=== PATIENT | female | born 1985 ===

== ENCOUNTER 2018-01-27 09:56 | Emergency (ER) | payer MEDICAID, OTHER ==
[2018-01-27 10:02] VITALS: BMI 30.3
[2018-01-27 10:03] VITALS: BP 123/81; PULSE 69; TEMP 98.1
[2018-01-27] MEDS ORDERED: Lidocaine 5% Patch TD STA (11:01)
--- NOTE | 2018-01-27 11:21 | ED PDOC ---
HPI: Back Time Seen by Provider: 01/27/18 10:23 Chief Complaint (Nursing): Back Pain History Per: Patient Additional Complaint(s): Pt. states this morning she woke up with non-radiating lower back pain. States she normally sleeps on her sides interchangeably. Pt. states she took 3 200mg Advils without any relief. Pain is worse when she sits down. Denies trauma, incontinence, hematuria, incontinence, dysuria, abdominal pain, fever. Past Medical History Reviewed: Historical Data, Nursing Documentation, Vital Signs Vital Signs: Last Vital Signs Temp 98.1 F 01/27/18 10:02 Pulse 69 01/27/18 10:02 Resp 16 01/27/18 10:02 BP 123/81 01/27/18 10:02 Pulse Ox 96 01/27/18 10:02 - Medical History PMH: Anxiety Denies: Chronic Kidney Disease - Family History Family History: States: Diabetes, Hypertension - Immunization History Hx Tetanus Toxoid Vaccination: Yes Hx Influenza Vaccination: Yes Hx Pneumococcal Vaccination: Yes - Home Medications Home Medications: Ambulatory Orders Medication Instructions Recorded Cyclobenzaprine [Cyclobenzaprine 10 mg PO Q8 PRN #15 tab 01/27/18 HCl] Lidocaine 5% [Lidoderm] 1 ea TD DAILY PRN #10 patch 01/27/18 Naproxen [Naprosyn] 500 mg PO BID PRN #30 tab 01/27/18 - Allergies Allergies/Adverse Reactions: Allergies Allergy/AdvReac Type Severity Reaction Status Date / Time No Known Allergies Allergy Verified 02/27/16 09:58 Review of Systems ROS Statement: Except As Marked, All Systems Reviewed And Found Negative Musculoskeletal: Positive for: Back Pain Physical Exam - Physical Exam Appears: Positive for: Non-toxic, Uncomfortable (moderate painful distress) Skin: Positive for: Normal Color, Warm. Negative for: Rash Eye Exam: Positive for: Normal appearance Gastrointestinal/Abdominal: Positive for: Normal Exam, Soft. Negative for: Tenderness Back: Positive for: Normal Inspection, Muscle Spasm (minimal paralumbar tenderness with spasm). Negative for: L CVA Tenderness, R CVA Tenderness, Vertebral Tenderness Extremity: Negative for: Calf Tenderness (b/l) Neurologic/Psych: Positive for: Alert, Oriented, Gait (steady, unassisted). Negative for: Aphasia, Facial Droop - Laboratory Results Urine POC: Negative - ECG O2 Sat by Pulse Oximetry: 96 - Radiology X-Ray: Interpreted by Me (LS spine x-ray) X-Ray Interpretation: No Acute Disease - Progress ED Course And Treament: Toradol 30mg IM, valium 10mg PO, lidoderm patch, LS spine x-ray ordered. 1200 On re-evaluation, pt. reports moderate analgesia. Disposition - Clinical Impression Clinical Impression: Low back pain - Patient ED Disposition Is Patient to be Admitted: No - Disposition Referrals: [facility] [Outside] [facility] [Outside] Disposition: Routine/Home Disposition Time: 12:06 Condition: STABLE Additional Instructions: Follow up with [facility] for further evlauation Return to ED immediately if symptoms worsen Prescriptions: Cyclobenzaprine [Cyclobenzaprine HCl] 10 mg PO Q8 PRN #15 tab PRN Reason: Muscle Spasm Lidocaine 5% [Lidoderm] 1 ea TD DAILY PRN #10 patch PRN Reason: pain Naproxen [Naprosyn] 500 mg PO BID PRN #30 tab PRN Reason: Pain Instructions: Low Back Pain (DC) Forms: [facility] ([place]), [facility] ED School/Work Excuse
[2018-01-27 11:22] LABS: SQUAMOUS EPITHIAL 1 /hpf (0-5); URINE BACTERIA RARE (<OCC); URINE BILIRUBIN NEGATIVE (NEGATIVE); URINE BLOOD NEGATIVE (NEGATIVE); URINE CLARITY SLIGHTY-CLOUDY (Clear); URINE COLOR YELLOW (YELLOW); URINE GLUCOSE (UA) NEG (Normal); URINE LEUKOCYTE ESTERASE NEG Leu/uL (Negative); URINE PROTEIN NEGATIVE (NEGATIVE)
--- NOTE | 2018-01-27 12:04 | RAD ---
PROCEDURE: Radiographs of the Lumbar Spine. HISTORY: Pain. No history of recent/ related trauma provided COMPARISON: No prior. FINDINGS: BONES: Scoliosis without secondary degenerative change. . No listhesis. No fracture. DISC SPACES: Unremarkable. OTHER FINDINGS: None. IMPRESSION: No significant or acute findings to account for/ related to the clinical presentation.
[2018-01-27 12:15] VITALS: RESP 18
[2018-01-27 19:46] VITALS: O2SAT 96
== END 2018-01-27 12:00 | disposition home or self-care (01) ==
LOC: H.ER 09:56
DX: M54.5 Low back pain (principal); F41.9 Anxiety disorder, unspecified
CPT/HCPCS: 72100; 81003; 81025; 96372; 99283; J1885

== ENCOUNTER 2018-06-15 18:39 | Inpatient (IN) | payer OTHER ==
[2018-06-15 18:39] VITALS: BMI 30.3
[2018-06-15 19:22] LABS: BASO % 0.3 % (0.0-2.0); EOS # 0.2 K/uL (0.0-0.7); EOS % 1.9 % (0.0-4.0); HEMOGLOBIN 11.5 g/dL (12.0-16.0); LYMPH # 2.1 K/uL (1.0-4.3); LYMPH % 19.2 % (20.0-40.0); MEAN CORPUSCULAR HEMOGLOBIN 30.5 pg (27.0-31.0); MEAN CORPUSCULAR HGB CONC 32.5 g/dL (33.0-37.0); MEAN PLATELET VOLUME 7.1 fl (7.2-11.7); MONO # 0.6 K/uL (0.0-0.8); MONO % 5.6 % (0.0-10.0); RBC 3.76 Mil/uL (3.80-5.20); RED CELL DISTRIBUTION WIDTH 19.4 % (11.5-14.5)
[2018-06-15 19:22] LABS: VENOUS BLOOD GAS BASE EXCESS -7.3 mmol/L (0.0-2.0); VENOUS BLOOD GAS PCO2 39 mmHg (40-60); VENOUS BLOOD GAS PO2 54 mm/Hg (30-55); VENOUS BLOOD PH 7.29 (7.32-7.43)
[2018-06-15] MEDS ORDERED: Sodium Chloride 0.9% 1,000 ML IV STA ×2 (19:23→21:12)
[2018-06-15 19:28] LABS: ACETAMINOPHEN < 10.0 ug/ml (10.0-30.0); SALICYLATE < 1.0 mg/dl
[2018-06-15 19:30] LABS: ALB/GLOB RATIO 1.2 (1.0-2.1); ALT/SGPT 56 U/L (9-52); AST/SGOT 84 U/L (14-36); BLOOD UREA NITROGEN 9 mg/dl (7-17); GFR NON-AFRICAN AMERICAN > 60
[2018-06-15 19:36] LABS: INR 1.1
[2018-06-15 19:39] LABS: PARTIAL THROMBOPLASTIN TIME 32.9 Seconds (25.6-37.1)
--- NOTE | 2018-06-15 20:22 | ED PDOC ---
HPI: Psych/Substance Abuse Time Seen by Provider: 06/15/18 18:47 Chief Complaint (Nursing): Substance Abuse Chief Complaint (Provider): Overdose ED Caveat: Intoxicated History Per: Patient, Family (cousin) Onset/Duration Of Symptoms: Hrs (x 3) Current Symptoms Are (Timing): Still Present Modifying Factor(s): Alcohol, Other (ibuprofen and zanaflex) Additional Complaint(s): 33 year old female with a history of asthma and alcohol abuse presents to the ED for evaluation of a drug overdose. According to her cousin, she received a call from the patient around 5 pm telling her to come over immediately because the patient felt sick. On arrival, the cousin found that the patient took the rest of her bottles of 600 mg Motrin and 4 mg Zanaflex and drank alcohol today intentionally. Currently, she is too lethargic to give further history. The karie ttles were filled on September 24 of this year and originally had 90 pills and 60 pills respectively. PMD: Dr. Alfonso Rodriguez Past Medical History Reviewed: Historical Data, Nursing Documentation, Vital Signs Vital Signs: Last Vital Signs Temp 98.3 F 06/15/18 18:44 Pulse 70 06/15/18 18:44 Resp 14 06/15/18 18:44 BP 135/87 06/15/18 18:44 Pulse Ox 99 06/15/18 18:44 - Medical History PMH: Anxiety Denies: Chronic Kidney Disease - Surgical History Surgical History: No Surg Hx - Family History Family History: States: Diabetes, Hypertension - Immunization History Hx Tetanus Toxoid Vaccination: Yes Hx Influenza Vaccination: Yes Hx Pneumococcal Vaccination: Yes - Home Medications Home Medications: Ambulatory Orders Medication Instructions Recorded Cyclobenzaprine [Cyclobenzaprine 10 mg PO Q8 PRN #15 tab 01/27/18 HCl] Lidocaine 5% [Lidoderm] 1 ea TD DAILY PRN #10 patch 01/27/18 Naproxen [Naprosyn] 500 mg PO BID PRN #30 tab 01/27/18 - Allergies Allergies/Adverse Reactions: Allergies Allergy/AdvReac Type Severity Reaction Status Date / Time No Known Allergies Allergy Verified 06/15/18 18:49 Review of Systems Review Of Systems: ROS cannot be obtained secondary to pt's inabilty to answer questions. Physical Exam - Reviewed Nursing Documentation Reviewed: Yes Vital Signs Reviewed: Yes - Physical Exam Appears: Positive for: No Acute Distress (lethargic but easily arousable; appears intoxicated ) Head Exam: Positive for: ATRAUMATIC, NORMAL INSPECTION, NORMOCEPHALIC Skin: Positive for: Normal Color, Warm, Dry Eye Exam: Positive for: EOMI, Other (sluggish gaze and roving eye movement) ENT: Positive for: Pharynx Is (clear), Other (tacky mucous membranes) Neck: Positive for: Normal, Painless ROM, Supple Cardiovascular/Chest: Positive for: Regular Rate, Rhythm Respiratory: Positive for: CNT, Normal Breath Sounds Neurologic/Psych: Positive for: Other (lethargic; arousable to voice; answers some questions but falls asleep almost immediately; slurred speech). Negative for: Motor/Sensory Deficits - Laboratory Results Result Diagrams: 06/15/18 19:15 06/15/18 19:15 - ECG ECG: Positive for: Interpreted By Me, Viewed By Me ECG Rhythm: Positive for: Normal QRS, Normal ST Segment, Sinus Rhythm (normal) Rate: 64 O2 Sat by Pulse Oximetry: 99 (RA) Pulse Ox Interpretation: Normal - Critical Care Total Time (In Min): 30 Documented Critical Care: Time excludes all time spent performint seperately billable procedures Medical Decision Making Medical Decision Makin:47 Impression: drug overdose and alcohol intoxicated Initial Plan: Discussed with poison center Concerning Motrin overdose need to be conscious of GI symptoms like nausea, vomiting and abdominal pain Concerning Zanaflex overdose- be conscious of bradycardia, hypotension and [employer] depression Continue with typical toxic workup for co-ingestion --VBG -_Acetaminophen --Alcohol --CMp --UDS --Beta-HCG --Salicylate --urien preg --Urine dip --CBC --PTT/INR --Glucose --NS IV --1:1 19:[address] Rodriguez. Patient will be placed under his service for intentional overdose of a sedative. 2200 Pt sleeping deeply but arousable, unchange from previous. Maintaining BP and RR. 2400 Pt continues to maintain BP and HR ~60 (similar to arrival). Lactic acid trending improvement. Scribe Attestation: Documented by Alejandrina Grant acting as a scribe for Mariela Gómez MD Provider Scribe Attestation: All medical record entries made by the Scribe were at my direction and personally dictated by me. I have reviewed the chart and agree that the record accurately reflects my personal performance of the history, physical exam, medic al decision making, and the department course for this patient. I have also personally directed, reviewed, and agree with the discharge instructions and disposition. Disposition - Clinical Impression Clinical Impression: Overdose of sedative or hypnotic, Overdose of nonsteroidal anti-inflammatory drug (NSAID) - Patient ED Disposition Is Patient to be Admitted: Yes - Disposition Disposition Time: 19:59 Condition: GUARDED - Pt Status Changed To: Hospital Disposition Of: Inpatient - Admit Certification Admit to Inpatient:: After my assessment, the patient will require hospitalization for at least two midnights. This is because of the severity of symptoms shown, intensity of services needed, and/or the medical risk in this patient being treated as an outpatient. - POA Present On Arrival: None
[2018-06-15 20:50] LABS: BARBITURATES, UR NEGATIVE (NEGATIVE); BENZODIAZEPINES, UR NEGATIVE (NEGATIVE); OPIATES, UR NEGATIVE (NEGATIVE); PHENCYCLIDINE, UR NEGATIVE (NEGATIVE)
[2018-06-15] MEDS ORDERED: Multivitamin (MVI) 10 ML, Thiamine 100 MG, Folic Acid 1 MG in Dextrose 5%/0.45% NS 1,00... IV ONE (21:18)
[2018-06-15] MEDS: Sodium Chloride 0.9% 1,000 ML IV SCH (22:20)
[2018-06-15 23:35] LABS: VENOUS BLOOD GAS PCO2 40 mmHg (40-60); VENOUS BLOOD GAS PO2 76 mm/Hg (30-55); VENOUS BLOOD PH 7.27 (7.32-7.43)
[2018-06-16 05:54] LABS: BASO # 0.1 K/uL (0.0-0.2); BASO % 1.5 % (0.0-2.0); EOS # 0.2 K/uL (0.0-0.7); EOS % 1.9 % (0.0-4.0); HEMOGLOBIN 10.9 g/dL (12.0-16.0); LYMPH # 1.4 K/uL (1.0-4.3); LYMPH % 17.3 % (20.0-40.0); MEAN CELL VOLUME 94.2 fl (81.0-99.0); MEAN CORPUSCULAR HGB CONC 31.9 g/dL (33.0-37.0); MEAN PLATELET VOLUME 7.2 fl (7.2-11.7); MONO # 0.6 K/uL (0.0-0.8); MONO % 7.7 % (0.0-10.0); NEUT # 5.8 K/uL (1.8-7.0); NEUT % 71.6 % (50.0-75.0); RBC 3.63 Mil/uL (3.80-5.20); WHITE BLOOD COUNT 8.1 K/uL (4.8-10.8)
[2018-06-16 06:20] LABS: ALB/GLOB RATIO 1.1 (1.0-2.1); ALBUMIN 3.4 g/dL (3.5-5.0); ALT/SGPT 45 U/L (9-52); AST/SGOT 48 U/L (14-36); BLOOD UREA NITROGEN 6 mg/dl (7-17); CALCIUM 8.8 mg/dL (8.4-10.2); GFR NON-AFRICAN AMERICAN > 60
[2018-06-16] MEDS: Sodium Chloride 0.9% 1,000 ML IV SCH (06:36)
--- NOTE | 2018-06-16 08:27 | CP.PCM.HP ---
History of Present Illness - History of Present Illness History of Present Illness: plt admitted for tele after suicide attempt with ibuprofen/zanaflex. was somnolent in ER but a/ox 4 at present. all labs noted. lft were elevated and now trending down. no f/c, n/v/d. pt w/ psych at bedside cont on 1:1 pt c/o mid chest pain earlier. trop negative. no complaints at present. brusing noted. ?? sternal rub while unresponsive by EMS. Present on Admission - Present on Admission Any Indicators Present on Admission: No Review of Systems - Cardiovascular Cardiovascular: As Per HPI, Chest Pain Past Patient History - Infectious Disease Hx of Infectious Diseases: None - Past Social History Smoking Status: Light Smoker < 10 Cigarettes Daily - CARDIAC Hx Cardiac Disorders: No Hx Angina: No Hx Atrial Fibrillation: No Hx Cardia Arrhythmia: No Hx Circulatory Problems: No Hx Congestive Heart Failure: No Hx Heart Attack: No Hx Heart Murmur: No Hx Heart Transplant: No Hx Hypercholesterolemia: No Hx Hypertension: No Hx Hypotension: No Hx Internal Defibrillator: No Hx Mitral Valve Prolapse: No Hx Pacemaker: No Hx Peripheral Edema: No Hx Peripheral Vascular Disease: No - PULMONARY Hx Respiratory Disorders: Yes Hx Asthma: No Hx Bronchitis: No Hx Chronic Obstructive Pulmonary Disease (COPD): No Hx Emphysema: No Hx Lung Cancer: No Hx Pneumonia: No Hx Pulmonary Edema: No Hx Pulmonary Embolism: No Hx Respiratory Aspiration: No Hx Respiratory Tract Infection: No Hx Sleep Apnea: Yes (prior to surgery) Hx Tuberculosis: No - NEUROLOGICAL Hx Neurological Disorder: No Hx Alzheimer's Disease: No HX Cerebrovascular Accident: No Hx Dementia: No Hx Dizziness: No Hx Meningitis: No Hx Migraine: No Hx Multiple Sclerosis: No Hx Paralysis: No Hx Parkinson's Disease: No Hx Seizures: No Hx Syncope: No Hx Transient Ischemic Attacks (TIA): No Hx Vertigo: No - HEENT Hx HEENT Problems: No Hx Blind: No Hx Cataracts: No Hx Deafness: No Hx Difficulty Chewing: No Hx Epistaxis: No Hx Glaucoma: No Hx Macular Degeneration: No Hx Sinusitis: No - RENAL Hx Chronic Kidney Disease: No - ENDOCRINE/METABOLIC Hx Endocrine Disorders: No Hx Adrenal Cancer: No Hx Diabetes Insipidus: No Hx Diabetes Mellitus Type 1: No Hx Diabetes Mellitus Type 2: No Hx Hyperthyroidism: No Hx Hypothyroidism: No Hx Systemic Lupus Erythematosus: No - HEMATOLOGICAL/ONCOLOGICAL Hx Blood Disorders: Yes Hx AIDS: No Hx Anemia: Yes (as per pt 4 months ago hemglobin low, was on iron pills) Hx Blood Transfusions: No Hx Blood Transfusion Reaction: No Hx Bruising: No Hx Cancer: No Hx Chemotherapy: No Hx Cirrhosis: No Hx Gum Bleeding: No Hx Hemophilia: No Hx Hepatitis A: No Hx Hepatitis B: No Hx Hepatitis C: No Hx Human Immunodeficiency Virus (HIV): No Hx Leukemia: No Hx Metastesis: No Hx Shingles: No Hx Sickle Cell Disease: No Hx Unexplained Bleeding: No Hx von Willebrand's Disease: No - INTEGUMENTARY Hx Dermatological Problems: No Hx Basil Cell: No Hx Vee: No Hx Cellulitis: No Hx Eczema: No Hx Melanoma: No Hx Psoriasis: No Hx Squamous Cell: No - MUSCULOSKELETAL/RHEUMATOLOGICAL Hx Musculoskeletal Disorders: No Hx Arthritis: No Hx Back Pain: No Hx Degenerative Joint Disease: No Hx Falls: No Hx Fractures: No Hx Gout: No Hx Herniated Disk: No Hx Myasthenia Gravis: No Hx Osteoarthritis: No Hx Osteomyelitis: No Hx Osteoporosis: No Hx Rhabdomyolysis: No Hx Rheumatoid Arthritis: No Hx Spinal Stenosis: No Hx Unsteady Gait: No - GASTROINTESTINAL Hx Gastrointestinal Disorders: No Hx Bowel Surgery: No Hx Clostridium Difficile: No Hx Colitis: No Hx Colostomy: No Hx Constipation: No Hx Crohn's Disease: No Hx Diarrhea: No Hx Diverticulitis: No Hx Esophageal Varices: No Hx Fatty Liver Disease: No Hx Gall Bladder Disease: No Hx Gastritis: No Hx Gastroesophageal Reflux: No Hx Hemorrhoids: No Hx Ileostomy: No Hx Irritable Bowel: No Hx Liver Failure: No Hx Nausea: No Hx Pancreatitis: No HX Swallowing Problems: No Hx Ulcer: No Hx Vomiting: No - GENITOURINARY/GYNECOLOGICAL Hx Genitourinary Disorders: No Hx Bladder Cancer: No Hx Bladder Stone: No Hx Cervical Cancer: No Hx Hematuria: No Hx Incontinence: No Hx Ovarian Cancer: No Hx Postmenopausal Bleeding: No Hx Reproductive Disorders: No Hx Sexually Transmitted Disorders: No Hx Uterine Cancer: No Hx Urinary Tract Infection: No - PSYCHIATRIC Hx Psychophysiologic Disorder: No Hx Anxiety: Yes Hx Bipolar Disorder: No Hx Depression: Yes Hx Emotional Abuse: No Hx Hallucinations: No Hx Panic Symptoms: No Hx Paranoia: No Hx Post Traumatic Stress Disorder: No Hx Psychosis: No Hx Physical Abuse: No Hx Schizophrenia: No Hx Sexual Abuse: No Hx Substance Use: No - SURGICAL HISTORY Hx Surgeries: Yes Hx Abdominal Aortic Aneurysm Repair: No Hx Amputation: No Hx Angiogram: No Hx Angioplasty: No Hx Appendectomy: No Hx Arteriovenous Shunt: No Hx Arthroscopy: No Hx Bile Duct Stent: No Hx Breast Biopsy: No Hx Cataract Extraction: No Hx Cardiac Catheterization: No Hx Carotid Endarterectomy: No Hx Section: No Hx Cholecystectomy: No Hx Coronary Artery Bypass Graft: No Hx Coronary Stent: No Hx Dilation and Curettage: No Hx Eye Surgery: No Hx Femoral-Popliteal Bypass Graft: No Hx Gastric Bypass Surgery: Yes (2006 and cesar mclaughlin 2013) Hx Herniorrhaphy: No Hx Hysterectomy: No Hx Joint Replacement: No Hx Kidney Transplant: No Hx Liver Transplant: No Hx Mastectomy: No Hx Musculoskeletal Surgery: No Hx Open Heart Surgery: No Hx Open Reduction Internal Fixation: No Hx Orthopedic Surgery: No Hx Parathyroidectomy: No Hx Penile Implant: No Hx Pulmonary Surgery: No Hx Splenectomy: No Hx Thyroidectomy: No Hx Tonsillectomy: No Hx Tubal Ligation: No Hx Valve Replacement: No Hx Vascular Surgery: No Hx Vascular Access Device: No Other/Comment: Cesar - ANESTHESIA Hx Anesthesia: Yes Hx Anesthesia Reactions: No Meds Allergies/Adverse Reactions: Allergies Allergy/AdvReac Type Severity Reaction Status Date / Time No Known Allergies Allergy Verified 06/16/18 03:51 Physical Exam - Constitutional Appears: Well, Non-toxic, No Acute Distress - Head Exam Head Exam: ATRAUMATIC, NORMAL INSPECTION, NORMOCEPHALIC - Eye Exam Eye Exam: EOMI, Normal appearance, PERRL Pupil Exam: NORMAL ACCOMODATION, PERRL - ENT Exam ENT Exam: Mucous Membranes Moist, Normal Exam - Neck Exam Neck exam: Positive for: Normal Inspection - Respiratory Exam Respiratory Exam: Clear to Auscultation Bilateral, NORMAL BREATHING PATTERN - Cardiovascular Exam Cardiovascular Exam: REGULAR RHYTHM, RRR, +S1, +S2 - GI/Abdominal Exam GI & Abdominal Exam: Normal Bowel Sounds, Soft. absent: Tenderness - Extremities Exam Extremities exam: Positive for: full ROM, normal capillary refill, normal inspection, pedal pulses present - Back Exam Back exam: FULL ROM, NORMAL INSPECTION - Neurological Exam Neurological exam: Alert, CN II-XII Intact, Normal Gait, Oriented x3, Reflexes Normal - Psychiatric Exam Psychiatric exam: Normal Affect, Normal Mood - Skin Skin Exam: Dry, Intact, Normal Color, Warm Additional comments: bruisng to mid chest wall Results - Vital Signs Recent Vital Signs: Last Vital Signs Temp 97.5 F L 06/16/18 08:00 Pulse 87 06/16/18 08:00 Resp 12 06/16/18 08:00 BP 128/77 06/16/18 08:00 Pulse Ox 99 06/16/18 08:00 - Labs Result Diagrams: 06/16/18 04:40 06/16/18 04:40 Labs: Laboratory Results - last 24 hr 06/15/18 06/15/18 06/15/18 18:47 19:15 19:15 WBC RBC Hgb Hct MCV MCH MCHC RDW Plt Count MPV Neut % (Auto) Lymph % (Auto) [place] % (Auto) Eos % (Auto) Baso % (Auto) Neut # (Auto) Lymph # (Auto) [place] # (Auto) Eos # (Auto) Baso # (Auto) PT INR APTT pO2 VBG pH VBG pCO2 VBG HCO3 VBG Total CO2 VBG O2 Sat (Calc) VBG Base Excess VBG Potassium A-a O2 Difference Glucose Lactate FiO2 Blood Gas Comments Crit Value Called To Crit Value Called By Crit Value Read Back Blood Gas Notified Time Sodium 139 Potassium 4.0 Chloride 107 Carbon Dioxide 20 L Anion Gap 16 BUN 9 Creatinine 0.6 L Est GFR ( Amer) > 60 Est GFR (Non-Af Amer) > 60 POC Glucose (mg/dL) 189 H Random Glucose 183 H Calcium 9.0 Phosphorus Magnesium Total Bilirubin 0.1 L AST 84 H ALT 56 H Alkaline Phosphatase 88 Troponin I Total Protein 7.3 Albumin 4.0 Globulin 3.3 Albumin/Globulin Ratio 1.2 Serum HCG, Qual Venous Blood Potassium Salicylates < 1.0 Urine Opiates Screen Urine Methadone Screen Acetaminophen < 10.0 L Ur Barbiturates Screen Ur Phencyclidine Scrn Ur Amphetamines Screen U Benzodiazepines Scrn U Oth Cocaine Metabols U Cannabinoids Screen Alcohol, Quantitative 180 H 06/15/18 06/15/18 06/15/18 19:15 19:15 19:17 WBC 11.0 H D RBC 3.76 L Hgb 11.5 L Hct 35.4 MCV 94.0 D MCH 30.5 MCHC 32.5 L RDW 19.4 H Plt Count 385 MPV 7.1 L Neut % (Auto) 73.0 Lymph % (Auto) 19.2 L [place] % (Auto) 5.6 Eos % (Auto) 1.9 Baso % (Auto) 0.3 Neut # (Auto) 8.0 H Lymph # (Auto) 2.1 [place] # (Auto) 0.6 Eos # (Auto) 0.2 Baso # (Auto) 0.0 PT 12.0 INR 1.1 APTT 32.9 pO2 54 VBG pH 7.29 L VBG pCO2 39 L VBG HCO3 18.9 VBG Total CO2 20.0 L VBG O2 Sat (Calc) 87.7 H VBG Base Excess -7.3 L VBG Potassium 3.7 A-a O2 Difference Glucose 187 H Lactate 2.7 H FiO2 21.0 Blood Gas Comments Lac=2.7 Crit Value Called To austin Coy Crit Value Called By 22 Crit Value Read Back Y Blood Gas Notified Time 1921 Sodium 136.0 Potassium Chloride 103.0 Carbon Dioxide Anion Gap BUN Creatinine Est GFR ( Amer) Est GFR (Non-Af Amer) POC Glucose (mg/dL) Random Glucose Calcium Phosphorus Magnesium Total Bilirubin AST ALT Alkaline Phosphatase Troponin I Total Protein Albumin Globulin Albumin/Globulin Ratio Serum HCG, Qual Venous Blood Potassium 3.7 Salicylates Urine Opiates Screen Urine Methadone Screen Acetaminophen Ur Barbiturates Screen Ur Phencyclidine Scrn Ur Amphetamines Screen U Benzodiazepines Scrn U Oth Cocaine Metabols U Cannabinoids Screen Alcohol, Quantitative 06/15/18 06/15/18 06/15/18 19:17 20:08 23:30 WBC RBC Hgb Hct MCV MCH MCHC RDW Plt Count MPV Neut % (Auto) Lymph % (Auto) [place] % (Auto) Eos % (Auto) Baso % (Auto) Neut # (Auto) Lymph # (Auto) [place] # (Auto) Eos # (Auto) Baso # (Auto) PT INR APTT pO2 76 H VBG pH 7.27 L VBG pCO2 40 VBG HCO3 18.6 VBG Total CO2 19.6 L VBG O2 Sat (Calc) 96.8 H VBG Base Excess -8.0 L VBG Potassium 3.9 A-a O2 Difference 24.0 Glucose 107 H Lactate 2.3 H FiO2 21.0 Blood Gas Comments Crit Value Called To Crit Value Called By Crit Value Read Back Blood Gas Notified Time Sodium 140.0 Potassium Chloride 111.0 H Carbon Dioxide Anion Gap BUN Creatinine Est GFR ( Amer) Est GFR (Non-Af Amer) POC Glucose (mg/dL) Random Glucose Calcium Phosphorus Magnesium Total Bilirubin AST ALT Alkaline Phosphatase Troponin I Total Protein Albumin Globulin Albumin/Globulin Ratio Serum HCG, Qual Negative Venous Blood Potassium 3.9 Salicylates Urine Opiates Screen Negative Urine Methadone Screen Negative Acetaminophen Ur Barbiturates Screen Negative Ur Phencyclidine Scrn Negative Ur Amphetamines Screen Negative U Benzodiazepines Scrn Negative U Oth Cocaine Metabols Negative U Cannabinoids Screen Negative Alcohol, Quantitative 06/16/18 06/16/18 04:40 04:40 WBC 8.1 RBC 3.63 L Hgb 10.9 L Hct 34.2 MCV 94.2 MCH 30.0 MCHC 31.9 L RDW 19.0 H Plt Count 305 MPV 7.2 Neut % (Auto) 71.6 Lymph % (Auto) 17.3 L [place] % (Auto) 7.7 Eos % (Auto) 1.9 Baso % (Auto) 1.5 Neut # (Auto) 5.8 Lymph # (Auto) 1.4 [place] # (Auto) 0.6 Eos # (Auto) 0.2 Baso # (Auto) 0.1 PT INR APTT pO2 VBG pH VBG pCO2 VBG HCO3 VBG Total CO2 VBG O2 Sat (Calc) VBG Base Excess VBG Potassium A-a O2 Difference Glucose Lactate FiO2 Blood Gas Comments Crit Value Called To Crit Value Called By Crit Value Read Back Blood Gas Notified Time Sodium 143 Potassium 4.1 Chloride 114 H Carbon Dioxide 22 Anion Gap 11 BUN 6 L Creatinine 0.6 L Est GFR ( Amer) > 60 Est GFR (Non-Af Amer) > 60 POC Glucose (mg/dL) Random Glucose 90 Calcium 8.8 Phosphorus 2.9 Magnesium 2.2 Total Bilirubin < 0.1 L AST 48 H D ALT 45 Alkaline Phosphatase 69 Troponin I < 0.0120 Total Protein 6.5 Albumin 3.4 L Globulin 3.1 Albumin/Globulin Ratio 1.1 Serum HCG, Qual Venous Blood Potassium Salicylates Urine Opiates Screen Urine Methadone Screen Acetaminophen Ur Barbiturates Screen Ur Phencyclidine Scrn Ur Amphetamines Screen U Benzodiazepines Scrn U Oth Cocaine Metabols U Cannabinoids Screen Alcohol, Quantitative Assessment & Plan (1) Chest pain Assessment and Plan: ?? r/t rescue measure vs gastritis. trop negative. tele wnl pepcid, maalox, zofran prn nausea. monitor fo rfurther complaitns. will do 2nd trop 1200 Status: Acute (2) DVT prophylaxis Assessment and Plan: scd and ae hose hold lovenox r/t nsaid od ambulation Status: Acute (3) Overdose of nonsteroidal anti-inflammatory drug (NSAID) Assessment and Plan: ivf, supportive care stool guiac Status: Acute (4) Overdose of sedative or hypnotic Assessment and Plan: poison control ivf ekg this am is nsr monitor bw w/ vbg/lactate Status: Acute Decision To Admit - Pt Status Changed To: Hospital Disposition Of: Inpatient - Admit Certification Admit to Inpatient:: After my assessment, the patient will require hospitalization for at least two midnights. This is because of the severity of symptoms shown, intensity of services needed, and/or the medical risk in this patient being treated as an outpatient. - . Bed Request Type: Telemetry Admitting Physician: Dennis Rich
--- NOTE | 2018-06-16 08:28 | RAD ---
Date of service: 06/15/2018 HISTORY: overdose COMPARISON: Chest radiographs 02/27/2016. FINDINGS: LUNGS: No active air space disease. Diminished inspiratory volume noted. PLEURA: No significant pleural effusion identified, no pneumothorax apparent. CARDIOVASCULAR: Normal. OSSEOUS STRUCTURES: No significant abnormalities. VISUALIZED UPPER ABDOMEN: Postop changes again seen left upper quadrant medially. OTHER FINDINGS: None. IMPRESSION: Diminished history volume however no infiltrate is appreciated. No pneumothorax or pleural effusion bilaterally. Postop changes reiterated left upper quadrant medially.
[2018-06-16] MEDS ORDERED: Pneumococcal 23-Valent Vaccine IM ONE (09:00)
[2018-06-16] MEDS ORDERED: Influenza Vaccine (5 YR UP)/PF 60 MCG/0.5 ML SYR IM ONE (09:00)
[2018-06-16 12:19] LABS: VENOUS BLOOD GAS BASE EXCESS -4.4 mmol/L (0.0-2.0); VENOUS BLOOD GAS PCO2 39 mmHg (40-60); VENOUS BLOOD GAS PO2 35 mm/Hg (30-55); VENOUS BLOOD PH 7.34 (7.32-7.43)
[2018-06-16 12:21] VITALS: TEMP 97.7; O2SAT 100
--- NOTE | 2018-06-16 13:01 | CARD ---
APPROVED REPORT Date of service: 06/15/2018 EKG Measurement Heart [id number] <Conclusion> Normal sinus rhythm Normal ECG
--- NOTE | 2018-06-16 13:17 | CARD ---
APPROVED REPORT Date of service: 06/16/2018 EKG Measurement Heart [id number] <Conclusion> Normal sinus rhythm Normal ECG
[2018-06-16 14:05] VITALS: BP 148/74; PULSE 68; RESP 17
--- NOTE | 2018-06-16 16:41 | CP.PCM.DIS ---
Provider - Provider Date of Admission: 06/15/18 19:59 Attending physician: Dennis Rich MD Time Spent in preparation of Discharge (in minutes): 15 Diagnosis - Discharge Diagnosis (1) Chest pain Status: Acute (2) DVT prophylaxis Status: Acute (3) Overdose of nonsteroidal anti-inflammatory drug (NSAID) Status: Acute (4) Overdose of sedative or hypnotic Status: Acute Hospital Course - Lab Results Lab Results: Most Recent Lab Values WBC 8.1 K/uL (4.8-10.8) 06/16/18 04:40 RBC 3.63 Mil/uL (3.80-5.20) L 06/16/18 04:40 Hgb 10.9 g/dL (12.0-16.0) L 06/16/18 04:40 Hct 34.2 % (34.0-47.0) 06/16/18 04:40 MCV 94.2 fl (81.0-99.0) 06/16/18 04:40 MCH 30.0 pg (27.0-31.0) 06/16/18 04:40 MCHC 31.9 g/dL (33.0-37.0) L 06/16/18 04:40 RDW 19.0 % (11.5-14.5) H 06/16/18 04:40 Plt Count 305 K/uL (130-400) 06/16/18 04:40 MPV 7.2 fl (7.2-11.7) 06/16/18 04:40 Neut % (Auto) 71.6 % (50.0-75.0) 06/16/18 04:40 Lymph % (Auto) 17.3 % (20.0-40.0) L 06/16/18 04:40 Merrick % (Auto) 7.7 % (0.0-10.0) 06/16/18 04:40 Eos % (Auto) 1.9 % (0.0-4.0) 06/16/18 04:40 Baso % (Auto) 1.5 % (0.0-2.0) 06/16/18 04:40 Neut # (Auto) 5.8 K/uL (1.8-7.0) 06/16/18 04:40 Lymph # (Auto) 1.4 K/uL (1.0-4.3) 06/16/18 04:40 Merrick # (Auto) 0.6 K/uL (0.0-0.8) 06/16/18 04:40 Eos # (Auto) 0.2 K/uL (0.0-0.7) 06/16/18 04:40 Baso # (Auto) 0.1 K/uL (0.0-0.2) 06/16/18 04:40 PT 12.0 Seconds (9.8-13.1) 06/15/18 19:15 INR 1.1 06/15/18 19:15 APTT 32.9 Seconds (25.6-37.1) 06/15/18 19:15 pO2 35 mm/Hg (30-55) 06/16/18 12:00 VBG pH 7.34 (7.32-7.43) 06/16/18 12:00 VBG pCO2 39 mmHg (40-60) L 06/16/18 12:00 VBG HCO3 21.1 mmol/L 06/16/18 12:00 VBG Total CO2 22.2 mmol/L (22-28) 06/16/18 12:00 VBG O2 Sat (Calc) 73.5 % (40-65) H 06/16/18 12:00 VBG Base Excess -4.4 mmol/L (0.0-2.0) L 06/16/18 12:00 VBG Potassium 4.2 mmol/L (3.6-5.2) 06/16/18 12:00 A-a O2 Difference 24.0 mm/Hg 06/15/18 23:30 Sodium 141.0 mmol/L (132-148) 06/16/18 12:00 Chloride 115.0 mmol/L (98-107) H 06/16/18 12:00 Glucose 83 mg/dL (65-105) 06/16/18 12:00 Lactate 1.6 mmol/L (0.7-2.1) 06/16/18 12:00 FiO2 21.0 % 06/16/18 12:00 Blood Gas Comments Lac=2.7 06/15/18 19:17 Crit Value Called To austin Coy 06/15/18 19:17 Crit Value Called By Florentino 06/15/18 19:17 Crit Value Read Back Y 06/15/18 19:17 Blood Gas Notified Time 192106/15/18 19:17 Sodium 143 mmol/l (132-148) 06/16/18 04:40 Potassium 4.1 MMOL/L (3.6-5.0) 06/16/18 04:40 Chloride 114 mmol/L (98-107) H 06/16/18 04:40 Carbon Dioxide 22 mmol/L (22-30) 06/16/18 04:40 Anion Gap 11 (10-20) 06/16/18 04:40 BUN 6 mg/dl (7-17) L 06/16/18 04:40 Creatinine 0.6 mg/dl (0.7-1.2) L 06/16/18 04:40 Est GFR ( Amer) > 60 06/16/18 04:40 Est GFR (Non-Af Amer) > 60 06/16/18 04:40 POC Glucose (mg/dL) 189 mg/dL (65-110) H 06/15/18 18:47 Random Glucose 90 mg/dL (65-105) 06/16/18 04:40 Calcium 8.8 mg/dL (8.4-10.2) 06/16/18 04:40 Phosphorus 2.9 mg/dl (2.5-4.5) 06/16/18 04:40 Magnesium 2.2 MG/DL (1.6-2.3) 06/16/18 04:40 Total Bilirubin < 0.1 mg/dl (0.2-1.3) L 06/16/18 04:40 AST 48 U/L (14-36) H D 06/16/18 04:40 ALT 45 U/L (9-52) 06/16/18 04:40 Alkaline Phosphatase 69 U/L (38-126) 06/16/18 04:40 Troponin I < 0.0120 ng/mL (0.00-0.120) 06/16/18 12:13 Total Protein 6.5 G/DL (6.3-8.2) 06/16/18 04:40 Albumin 3.4 g/dL (3.5-5.0) L 06/16/18 04:40 Globulin 3.1 gm/dL (2.2-3.9) 06/16/18 04:40 Albumin/Globulin Ratio 1.1 (1.0-2.1) 06/16/18 04:40 Serum HCG, Qual Negative (NEGATIVE) 06/15/18 19:17 Venous Blood Potassium 4.2 mmol/L (3.6-5.2) 06/16/18 12:00 Salicylates < 1.0 mg/dl 06/15/18 19:15 Urine Opiates Screen Negative (NEGATIVE) 06/15/18 20:08 Urine Methadone Screen Negative (NEGATIVE) 06/15/18 20:08 Acetaminophen < 10.0 ug/ml (10.0-30.0) L 06/15/18 19:15 Ur Barbiturates Screen Negative (NEGATIVE) 06/15/18 20:08 Ur Phencyclidine Scrn Negative (NEGATIVE) 06/15/18 20:08 Ur Amphetamines Screen Negative (NEGATIVE) 06/15/18 20:08 U Benzodiazepines Scrn Negative (NEGATIVE) 06/15/18 20:08 U Oth Cocaine Metabols Negative (NEGATIVE) 06/15/18 20:08 U Cannabinoids Screen Negative (NEGATIVE) 06/15/18 20:08 Alcohol, Quantitative 49 mg/dl (0-10) H 06/16/18 10:59 - Hospital Course Hospital Course: poison control cleared bw normalized pt signed into psych care Discharge Exam - Head Exam Head Exam: ATRAUMATIC, NORMAL INSPECTION, NORMOCEPHALIC Discharge Plan - Follow Up Plan Condition: GUARDED Disposition: DISCHARGE TO PSYCH HOSPITAL Instructions: Alcohol Poisoning (DC) Additional Instructions: will follow on 3np. repeat bw in am. rted prn. meds per med rec final dx-nsaid/muscle relaxer OD, SI, depression per rn notes, pt doing well. vs noted. all labs reviewed Referrals: Alfonso Rodriguez, DNP, [employer]LL[employer] B[employer] MACHINE OPERATOR [Family Provider] -
== END 2018-06-16 16:30 | DRG 918 ==
LOC: H.ER 18:39 → H.ERHOLD 19:59 → H.ICU/CCU 06-16 02:26
PROVIDERS: ADMIT Family Medicine; ATTEND Family Medicine
PROC: 3E02340 Introduction of Influenza Vaccine into Muscle, Percutaneous Approach (ICD-10-PCS; principal; 2018-06-16)
PROC: 3E0234Z Introduction of Serum, Toxoid and Vaccine into Muscle, Percutaneous Approach (ICD-10-PCS; 2018-06-16)
DX: T39.391A Poisoning by other nonsteroidal anti-inflammatory drugs [NSAID], accidental (unintentional), initial encounter (principal); R07.9 Chest pain, unspecified; F17.210 Nicotine dependence, cigarettes, uncomplicated; Z98.84 Bariatric surgery status; D64.9 Anemia, unspecified; J45.909 Unspecified asthma, uncomplicated; F10.10 Alcohol abuse, uncomplicated; F32.9 Major depressive disorder, single episode, unspecified; F41.9 Anxiety disorder, unspecified; E11.9 Type 2 diabetes mellitus without complications; F10.129 Alcohol abuse with intoxication, unspecified; G47.30 Sleep apnea, unspecified; Z82.49 Family history of ischemic heart disease and other diseases of the circulatory system; Z23 Encounter for immunization

== ENCOUNTER 2018-06-16 17:44 | Inpatient (IN) | payer OTHER ==
[2018-06-16 18:03] VITALS: BMI 29.0
[2018-06-16] MEDS ORDERED: Alum-Mag Hydrox-Simethicone Susp (30 mL) PO PRN (18:16)
[2018-06-16] MEDS ORDERED: DiphenhydrAMINE 50 mg/ml Inj IM PRN (18:16)
[2018-06-16] MEDS ORDERED: Magnesium Hydroxide Susp 30 ml UD PO PRN (18:16)
[2018-06-16 18:20] VITALS: RESP 18
--- NOTE | 2018-06-16 18:42 | PCM.BM ---
<Jomar Chowdary - Last Filed: 06/16/18 18:39> Treatment Plan Problems - Problems identified on initial assessmt Hopelessness/Helplessness Date Initiated: 06/16/18 Time Initiated: 17:55 Assessment reference: NA Treatment assets and liabiliti Patient Assests: adapts well, cooperative, ADL independent, physically healthy, negotiates basic needs Patient Liabilities: relationship conflicts - Milieu Protocol Maintain good personal hygiene: every shift Encourage regular showers, every shift Remind patient to perform daily oral care, every shift Assist patient to perform ADL's Maintain personal safety: every shift Educate patient to report safety concerns to staff, every shift Monitor environment for contraband/sharps Medication safety: Monitor for expected outcome, potential side effects: every shift, Assess barriers to learning: every shift, Assess readiness for medication education: every shift <Cesar Solorio - Last Filed: 06/18/18 09:11> Treatment Plan Problems - Problems identified on initial assessmt Hopelessness/Helplessness Date Initiated: 06/16/18 Time Initiated: 17:55 Assessment reference: NA Substance Use Date Initiated: 06/17/18 Time Initiated: 11:28 Assessment reference: NA Status: Active - Diagnosis (1) Depression Status: Acute Interventions: psychotherapy, pharmacotherapy 06/18/18 09:11
[2018-06-17 06:33] LABS: T4 6.37 ug/dl (5.5-11.0)
--- NOTE | 2018-06-17 09:36 | CP.PCM.HP ---
History of Present Illness - History of Present Illness History of Present Illness: pt admitted to [facility] for suicide attempt/depression. pt admits that her actions were impulse and is not currently suicidal. bw noted. no f/c, n/v/d. am labs ordered. no abd pain/cp/dyspnea Present on Admission - Present on Admission Any Indicators Present on Admission: No Review of Systems - Psychiatric Psychiatric: As Per HPI, Depression, Suicidal Ideation Past Patient History - Infectious Disease Hx of Infectious Diseases: None - Past Social History Smoking Status: Light Smoker < 10 Cigarettes Daily - CARDIAC Hx Cardiac Disorders: No Hx Angina: No Hx Atrial Fibrillation: No Hx Cardia Arrhythmia: No Hx Circulatory Problems: No Hx Congestive Heart Failure: No Hx Heart Attack: No Hx Heart Murmur: No Hx Heart Transplant: No Hx Hypercholesterolemia: No Hx Hypertension: No Hx Hypotension: No Hx Internal Defibrillator: No Hx Mitral Valve Prolapse: No Hx Pacemaker: No Hx Peripheral Edema: No Hx Peripheral Vascular Disease: No - PULMONARY Hx Respiratory Disorders: Yes Hx Asthma: No Hx Bronchitis: No Hx Chronic Obstructive Pulmonary Disease (COPD): No Hx Emphysema: No Hx Lung Cancer: No Hx Pneumonia: No Hx Pulmonary Edema: No Hx Pulmonary Embolism: No Hx Respiratory Aspiration: No Hx Respiratory Tract Infection: No Hx Sleep Apnea: Yes (prior to surgery) Hx Tuberculosis: No - NEUROLOGICAL Hx Neurological Disorder: No Hx Alzheimer's Disease: No HX Cerebrovascular Accident: No Hx Dementia: No Hx Dizziness: No Hx Meningitis: No Hx Migraine: No Hx Multiple Sclerosis: No Hx Paralysis: No Hx Parkinson's Disease: No Hx Seizures: No Hx Syncope: No Hx Transient Ischemic Attacks (TIA): No Hx Vertigo: No - HEENT Hx HEENT Problems: No Hx Cataracts: No Hx Deafness: No Hx Difficulty Chewing: No Hx Epistaxis: No Hx Glaucoma: No Hx Macular Degeneration: No - RENAL Hx Chronic Kidney Disease: No - ENDOCRINE/METABOLIC Hx Endocrine Disorders: No Hx Adrenal Cancer: No Hx Diabetes Insipidus: No Hx Diabetes Mellitus Type 1: No Hx Diabetes Mellitus Type 2: No Hx Hyperthyroidism: No Hx Hypothyroidism: No Hx Systemic Lupus Erythematosus: No - HEMATOLOGICAL/ONCOLOGICAL Hx Blood Disorders: Yes Hx AIDS: No Hx Anemia: Yes (as per pt 4 months ago hemglobin low, was on iron pills) Hx Blood Transfusions: No Hx Blood Transfusion Reaction: No Hx Bruising: No Hx Cancer: No Hx Chemotherapy: No Hx Cirrhosis: No Hx Gum Bleeding: No Hx Hemophilia: No Hx Hepatitis A: No Hx Hepatitis B: No Hx Hepatitis C: No Hx Human Immunodeficiency Virus (HIV): No Hx Leukemia: No Hx Metastesis: No Hx Shingles: No Hx Sickle Cell Disease: No Hx Unexplained Bleeding: No Hx von Willebrand's Disease: No - INTEGUMENTARY Hx Dermatological Problems: No Hx Basil Cell: No Hx Vee: No Hx Cellulitis: No Hx Eczema: No Hx Melanoma: No Hx Psoriasis: No Hx Squamous Cell: No - MUSCULOSKELETAL/RHEUMATOLOGICAL Hx Musculoskeletal Disorders: No Hx Arthritis: No Hx Back Pain: No Hx Degenerative Joint Disease: No Hx Falls: No Hx Fractures: No Hx Gout: No Hx Herniated Disk: No Hx Myasthenia Gravis: No Hx Osteoarthritis: No Hx Osteomyelitis: No Hx Osteoporosis: No Hx Rhabdomyolysis: No Hx Rheumatoid Arthritis: No Hx Spinal Stenosis: No Hx Unsteady Gait: No - GASTROINTESTINAL Hx Gastrointestinal Disorders: No Hx Bowel Surgery: No Hx Clostridium Difficile: No Hx Colitis: No Hx Colostomy: No Hx Constipation: No Hx Crohn's Disease: No Hx Diarrhea: No Hx Diverticulitis: No Hx Esophageal Varices: No Hx Fatty Liver Disease: No Hx Gall Bladder Disease: No Hx Gastritis: No Hx Gastroesophageal Reflux: No Hx Hemorrhoids: No Hx Ileostomy: No Hx Irritable Bowel: No Hx Liver Failure: No Hx Nausea: No Hx Pancreatitis: No HX Swallowing Problems: No Hx Ulcer: No Hx Vomiting: No - GENITOURINARY/GYNECOLOGICAL Hx Genitourinary Disorders: No Hx Bladder Cancer: No Hx Bladder Stone: No Hx Cervical Cancer: No Hx Hematuria: No Hx Incontinence: No Hx Ovarian Cancer: No Hx Postmenopausal Bleeding: No Hx Reproductive Disorders: No Hx Sexually Transmitted Disorders: No Hx Uterine Cancer: No Hx Urinary Tract Infection: No - PSYCHIATRIC Hx Anxiety: Yes Hx Depression: Yes Hx Emotional Abuse: No Hx Physical Abuse: No Hx Sexual Abuse: No Hx Substance Use: No - SURGICAL HISTORY Hx Surgeries: Yes Hx Abdominal Aortic Aneurysm Repair: No Hx Amputation: No Hx Angiogram: No Hx Angioplasty: No Hx Appendectomy: No Hx Arteriovenous Shunt: No Hx Arthroscopy: No Hx Bile Duct Stent: No Hx Breast Biopsy: No Hx Cataract Extraction: No Hx Cardiac Catheterization: No Hx Carotid Endarterectomy: No Hx Section: No Hx Cholecystectomy: No Hx Coronary Artery Bypass Graft: No Hx Coronary Stent: No Hx Dilation and Curettage: No Hx Eye Surgery: No Hx Femoral-Popliteal Bypass Graft: No Hx Gastric Bypass Surgery: Yes (2006 and cesar mclaughlin 2013) Hx Herniorrhaphy: No Hx Hysterectomy: No Hx Joint Replacement: No Hx Kidney Transplant: No Hx Liver Transplant: No Hx Mastectomy: No Hx Musculoskeletal Surgery: No Hx Open Heart Surgery: No Hx Open Reduction Internal Fixation: No Hx Orthopedic Surgery: No Hx Parathyroidectomy: No Hx Penile Implant: No Hx Pulmonary Surgery: No Hx Splenectomy: No Hx Thyroidectomy: No Hx Tonsillectomy: No Hx Tubal Ligation: No Hx Valve Replacement: No Hx Vascular Surgery: No Hx Vascular Access Device: No Other/Comment: Hanny - ANESTHESIA Hx Anesthesia: Yes Hx Anesthesia Reactions: No Meds Allergies/Adverse Reactions: Allergies Allergy/AdvReac Type Severity Reaction Status Date / Time No Known Allergies Allergy Verified 06/16/18 03:51 Physical Exam - Constitutional Appears: Well, Non-toxic, No Acute Distress - Head Exam Head Exam: ATRAUMATIC, NORMAL INSPECTION, NORMOCEPHALIC - Eye Exam Eye Exam: EOMI, Normal appearance, PERRL Pupil Exam: NORMAL ACCOMODATION, PERRL - ENT Exam ENT Exam: Mucous Membranes Moist, Normal Exam - Neck Exam Neck exam: Positive for: Normal Inspection - Respiratory Exam Respiratory Exam: Clear to Auscultation Bilateral, NORMAL BREATHING PATTERN - Cardiovascular Exam Cardiovascular Exam: REGULAR RHYTHM, RRR, +S1, +S2 - GI/Abdominal Exam GI & Abdominal Exam: Normal Bowel Sounds, Soft. absent: Tenderness - Extremities Exam Extremities exam: Positive for: full ROM, normal capillary refill, normal inspection, pedal pulses present - Back Exam Back exam: FULL ROM, NORMAL INSPECTION - Neurological Exam Neurological exam: Alert, CN II-XII Intact, Normal Gait, Oriented x3, Reflexes Normal - Psychiatric Exam Psychiatric exam: Normal Affect, Normal Mood - Skin Skin Exam: Dry, Intact, Normal Color, Warm Results - Vital Signs Recent Vital Signs: Last Vital Signs Temp 96.9 F L 06/17/18 09:29 Pulse 55 L 06/17/18 09:29 Resp 18 06/17/18 09:29 BP 128/79 06/17/18 09:29 Pulse Ox - Labs Labs: Laboratory Results - last 24 hr 06/17/18 05:20 Thyroxine (T4) 6.37 TSH 3rd Generation 1.01 Assessment & Plan (1) DVT prophylaxis Assessment and Plan: ambulation Status: Acute (2) Overdose of nonsteroidal anti-inflammatory drug (NSAID) Assessment and Plan: psych meds, interventions, therapies stool occult blood pepcid, maalox Status: Acute (3) Overdose of sedative or hypnotic Assessment and Plan: psych meds, interventions, therapies Status: Acute Decision To Admit - Pt Status Changed To: Hospital Disposition Of: Inpatient - Admit Certification Admit to Inpatient:: After my assessment, the patient will require hospitalization for at least two midnights. This is because of the severity of symptoms shown, intensity of services needed, and/or the medical risk in this patient being treated as an outpatient. - . Bed Request Type: Adult Psychiatry Admitting Physician: Dennis Rich
[2018-06-17 10:39] LABS: BASO # 0.1 K/uL (0.0-0.2); BASO % 0.9 % (0.0-2.0); EOS # 0.2 K/uL (0.0-0.7); EOS % 3.4 % (0.0-4.0); LYMPH # 1.1 K/uL (1.0-4.3); LYMPH % 16.2 % (20.0-40.0); MEAN CELL VOLUME 93.7 fl (81.0-99.0); MEAN CORPUSCULAR HEMOGLOBIN 30.8 pg (27.0-31.0); MEAN CORPUSCULAR HGB CONC 32.8 g/dL (33.0-37.0); MEAN PLATELET VOLUME 7.1 fl (7.2-11.7); MONO # 0.7 K/uL (0.0-0.8); MONO % 10.4 % (0.0-10.0); NEUT # 4.6 K/uL (1.8-7.0); NEUT % 69.1 % (50.0-75.0); NRBC % 0.1 % (0.0-0.0); RBC 3.57 Mil/uL (3.80-5.20); WHITE BLOOD COUNT 6.6 K/uL (4.8-10.8)
--- NOTE | 2018-06-17 11:28 | PCM.BM ---
Treatment Plan Problems - Problems identified on initial assessmt Hopelessness/Helplessness Date Initiated: 06/16/18 Time Initiated: 17:55 Assessment reference: NA Substance Use Date Initiated: 06/17/18 Time Initiated: 11:28 Assessment reference: NA Status: Active Treatment assets and liabiliti Patient Assests: adapts well, cooperative, ADL independent, physically healthy, negotiates basic needs Patient Liabilities: relationship conflicts - Milieu Protocol Maintain good personal hygiene: every shift Encourage regular showers, every shift Remind patient to perform daily oral care, every shift Assist patient to perform ADL's Maintain personal safety: every shift Educate patient to report safety concerns to staff, every shift Monitor environment for contraband/sharps Medication safety: Monitor for expected outcome, potential side effects: every shift, Assess barriers to learning: every shift, Assess readiness for medication education: every shift
[2018-06-17 11:38] LABS: ALT/SGPT 39 U/L (9-52); AST/SGOT 32 U/L (14-36); BLOOD UREA NITROGEN 6 mg/dl (7-17); CALCIUM 9.1 mg/dL (8.4-10.2); GFR NON-AFRICAN AMERICAN > 60
[2018-06-17 12:00] LABS: ALBUMIN 3.8 g/dL (3.5-5.0)
[2018-06-17 12:01] LABS: ALB/GLOB RATIO 1.4 (1.0-2.1)
--- NOTE | 2018-06-17 13:51 | PCM.PSYCH ---
Initial Psychiatric Evaluation - Initial Psychiatric Evaluation Type of Admission: Voluntary Legal Status: Capacity Chief Complaint (in patient's own words): I regret having my whole life revolving around one person History of Present Illness and Precipitating Events: pt is 33ys old female with previous diagnosis of depression and anxiety diagnosed last september,and alcohol use disorder for past 11 years pt stated that after 11ys of marriage with multiple conflicts, her informed her that he needs to separate from her, since then has been feeling increasingly depressed, down, and anxious , pt started seeing a psychiatrist and therapist , was placed on zoloft, partially compliant with medication and follow up on day she was brought to hospital she heard her speaking to a new girl friend, felt increasingly overwhelmed, she went home and had suicidal ideation, patient overdosed on motrin , xanax and alcohol, then she called her cousin as she felt sick On arrival, the cousin found that the patient took the rest of her bottles of 600 mg Motrin and 4 mg Zanaflex and drank alcohol with the intention to overdose on evaluation, pt is tearful sad and overwhelmed, reported feeling remorseful,for her children but continues to report depression and anxiety, passive suicidal ideation without plan, denied perceptual disturbances, hx of alcohol use for past 11years , pt attends AA meetings Current Medications: Active Medications Generic Name Dose Route Start Last Admin Trade Name Freq PRN Reason Stop Dose Admin Acetaminophen 650 mg 06/16/18 18:16 Tylenol 325mg Tab PO Q4 PRN Pain, moderate (4-7) Al Hydrox/Mg Hydrox/Simethicone 30 ml 06/16/18 18:16 Maalox Plus 30 Ml PO Q4 PRN Dyspepsia Diphenhydramine HCl 50 mg 06/16/18 18:16 Benadryl IM Q6 PRN Extrapyramidal S/S Unable PO Diphenhydramine HCl 50 mg 06/16/18 18:16 Benadryl PO Q6 PRN Extrapyramidal Symptoms Diphenhydramine HCl 50 mg 06/16/18 19:48 Benadryl PO HS PRN Sleep Famotidine 20 mg 06/17/18 09:15 06/17/18 10:45 Pepcid PO Not Given BID ALLAN Haloperidol 5 mg 06/16/18 18:16 Haldol PO Q4 PRN Agitation Haloperidol Lactate 5 mg 06/16/18 18:16 Haldol IM Q4 PRN Agitation, Unable to Take PO Lorazepam 2 mg 06/16/18 18:16 Ativan IM Q4 PRN Anxiety/Agitation,Unable PO Lorazepam 2 mg 06/16/18 18:16 Ativan PO Q4 PRN Anxiety/Agitation Magnesium Hydroxide 30 ml 06/16/18 18:16 Milk Of Magnesia PO HS PRN Constipation Past Psychiatric History - Past Psychiatric History Nature of Treatment: no hx of previous hospitalizations History of ETOH/Drug Use: alcohol use for past 11 years Pertinent Medical Hx (Current Medical&Sleep Prob, Allergies): Allergies Allergy/AdvReac Type Severity Reaction Status Date / Time No Known Allergies Allergy Verified 06/16/18 03:51 Mental Status Examination - Affect Affect: Constricted, Depressed - Motor Activity Motor Activity: Calm - Reliability in Providing Information Reliability in Providing Information: Fair - Speech Speech: Organized - Mood Mood: Depressed, Anxious - Formal Thought Process Formal Thought Process: No Impairment - Obsessions/Compulsions Obsessions: No Compulsions: No - Cognitive Functions Orientation: Person, Place, Situation Sensorium: Alert Attention/Concentration: Attentive - Risk Risk: Suicidal, Diminished functioning - Strength & Assets Inventory Strength & Assets Inventory: Family support - Limitations Additional comments: marital conflicts DSM 5 DX - DSM 5 DSM 5 Diagnosis: major depression alcohol use disorder - Recommended/Plan of Treatment Treatment Recommendations and Plan of Treatment: lexapro 5mg qhs encourage medication compliance CBT5 group and supportive therapy internal medicine consult disposition planning
[2018-06-18 06:51] LABS: HDL CHOLESTEROL 65 MG/DL (30-70)
[2018-06-18 07:02] LABS: LDL CHOLESTEROL 32 mg/dL (0-129)
[2018-06-18] MEDS ORDERED: Multivitamin With Minerals Tab PO SCH (09:00)
[2018-06-18 09:21] VITALS: BP 123/76; PULSE 60; TEMP 98.1
--- NOTE | 2018-06-18 11:34 | PCM.PYCHDC ---
Mental Status Examination - Mental Status Examination Orientation: Person, Place, Situation Memory: Intact Mood: Neutral Affect: Broad Speech: Appropriate Attention: WNL Concentration: WNL Association: WNL Fund of Knowledge: WNL Formal Thought Process: No Impairment Description of patient's judgement and insight: partial insight fair judgment Psychotic Thoughts and Behaviors: pt denied psychotic symptoms, non elicited Suicidal Ideation: No Current Homicidal Ideation?: No Discharge Summary - Discharge Note Reason for Hospitalization: pt is 33ys old female with previous diagnosis of depression and anxiety diagnosed last september,and alcohol use disorder for past 11 years pt stated that after 11ys of marriage with multiple conflicts, her informed her that he needs to separate from her, since then has been feeling increasingly depressed, down, and anxious , pt started seeing a psychiatrist and therapist , was placed on zoloft, partially compliant with medication and follow up on day she was brought to hospital she heard her speaking to a new girl friend, felt increasingly overwhelmed, she went home and had suicidal ideation, patient overdosed on motrin , xanax and alcohol, then she called her cousin as she felt sick On arrival, the cousin found that the patient took the rest of her bottles of 600 mg Motrin and 4 mg Zanaflex and drank alcohol with the intention to overdose on evaluation, pt is tearful sad and overwhelmed, reported feeling remorseful,for her children but continues to report depression and anxiety, passive suicidal ideation without plan, denied perceptual disturbances, hx of alcohol use for past 11years , pt attends AA meetings Psychiatric History (includes Medical, Family, Personal Hx): no hx of previous hospitalizations Laboratory Data: Abnormal Lab Results 06/17/18 06/17/18 06/18/18 05:20 10:31 06:30 Sodium 142 Potassium 3.8 Chloride 113 H Carbon Dioxide 23 Anion Gap 10 BUN 6 L Creatinine 0.7 Est GFR ( Amer) > 60 Est GFR (Non-Af Amer) > 60 Random Glucose 59 L Calcium 9.1 Phosphorus 2.3 L Magnesium 2.2 Total Bilirubin 0.3 AST 32 ALT 39 Alkaline Phosphatase 64 Total Protein 6.6 Albumin 3.8 Globulin 2.8 Albumin/Globulin Ratio 1.4 Triglycerides 54 Cholesterol 114 LDL Cholesterol Direct 32 HDL Cholesterol 65 RPR Nonreactive Consultations:: List each consultation separately and include: 1. Reason for request. 2. Findings. 3. Follow-up Summary of Hospital Course include:: 1. Description of specific treatment plan utilized for patients during their course of treatmen. 2. Summarize the time- course for resolution of acute symptoms and/or regressed behaviors. 3. Describe issues identified and worked on during hospitalization. 4. Describe medication utilized. 5. Describe medical problems identified and treated. 6. Reassessment of suicide risk Summary of Hospital Course: pt on admission declined being on medications CBT, GROUP AND SUPPORTIVE THERAPY WAS PROVIDED PT ALSO RECEIVED MOTIVATIONAL THERAPY IN REFERENCE TO ALCOHOL USE social work instructor contacted mother for collateral information pt was remorseful for the suicidal gesture, gradually presented with brighter affect on discharge mental status was stable, pt denied any current suicidal or homicidal ideation follow up arranged at [facility] pt also referred to AA meetings - Diagnosis (1) Depression Current Visit: Yes Status: Acute - Final Diagnosis (DSM 5) Condition upon Discharge: GOOD DSM 5: adjustment disorder with depressed mood depressive disorder alcohol abuse Disposition: HOME/ ROUTINE - Antipsychotic Medications Pt discharged on 2 or more routine antipsychotic medications: No
== END 2018-06-18 14:16 | disposition home or self-care (01) | DRG 881 ==
LOC: H.PSYCH 18:03
PROVIDERS: ADMIT Psychiatry & Neurology Psychiatry; ATTEND Psychiatry & Neurology Psychiatry
DX: F43.21 Adjustment disorder with depressed mood (principal); F41.9 Anxiety disorder, unspecified; F10.10 Alcohol abuse, uncomplicated; Z87.891 Personal history of nicotine dependence; Z98.84 Bariatric surgery status; Z91.5 Personal history of self-harm

== ENCOUNTER 2018-09-30 18:26 | Emergency (ER) | payer SELFPAY ==
[2018-09-30 18:27] VITALS: BMI 29.0
[2018-09-30] MEDS ORDERED: Multivitamin (MVI) 10 ML, Thiamine 100 MG, Folic Acid 1 MG in Sodium Chloride 0.9% 1,00... IV ONE (19:40)
[2018-09-30 20:16] LABS: BASO # 0.1 K/uL (0.0-0.2); EOS # 0.1 K/uL (0.0-0.7); EOS % 1.7 % (0.0-4.0); HEMOGLOBIN 11.2 g/dL (12.0-16.0); LYMPH # 1.1 K/uL (1.0-4.3); LYMPH % 17.6 % (20.0-40.0); MEAN CELL VOLUME 91.2 fl (81.0-99.0); MEAN CORPUSCULAR HGB CONC 32.9 g/dL (33.0-37.0); MONO # 0.4 K/uL (0.0-0.8); MONO % 6.7 % (0.0-10.0); NEUT # 4.7 K/uL (1.8-7.0); RBC 3.73 Mil/uL (3.80-5.20); RED CELL DISTRIBUTION WIDTH 22.6 % (11.5-14.5); WHITE BLOOD COUNT 6.4 K/uL (4.8-10.8)
--- NOTE | 2018-09-30 20:32 | ED PDOC ---
HPI: General Adult Time Seen by Provider: 09/30/18 19:11 Chief Complaint (Nursing): Anxiety Chief Complaint (Provider): anxiety, alcohol withdrawal History Per: Patient History/Exam Limitations: no limitations Onset/Duration Of Symptoms: Hrs Current Symptoms Are (Timing): Still Present Additional Complaint(s): Marci Stock is a 33 year old female, with a past medical history of anxiety, who presents to the emergency department complaining of feeling anxious, shaky and nauseous with some vomiting since trying to stop drinking alcohol, she last drank at 02:00am today. Patient states she normally drinks about 2 bottles of wine a day. She reports a history of anxiety but is not on any medications. She admits using alcohol to treat anxiety. She denies any other drug use, hallucinations, homicidal or suicidal ideation. No further medical complaints. PMD: Alfonso Rodriguez Past Medical History Reviewed: Historical Data, Nursing Documentation, Vital Signs Vital Signs: Last Vital Signs Temp 98.3 F 09/30/18 18:30 Pulse 80 09/30/18 18:30 Resp 20 09/30/18 18:30 BP 132/84 09/30/18 18:30 Pulse Ox 99 09/30/18 18:30 - Medical History PMH: Anemia (as per pt 4 months ago hemglobin low, was on iron pills), Anxiety, Depression, Sleep Apnea (prior to surgery) Denies: Alzheimer's Disease, Arthritis, Asthma, Atrial Fibrillation, Bipolar Disorder, Bronchitis, CAD, Cardia Arrhythmia, CHF, COPD, Crohn's Disease, Dementia, Diverticulitis, Emphysema, Fractures, Gastritis, Gall Bladder Disease, HIV, HTN, Hypercholesterolemia, Hyperthyroidism, Hypothyroidism, Kidney Stones, Migraine, Mitral Valve Prolapse, Multiple Sclerosis, Osteoporosis, Pancreatitis, Paranoia, Parkinson's Disease, Peripheral Edema, Pneumonia, Post Traumatic Stress Disorder, Pulmonary Embolism, Chronic Kidney Disease, Rheumatoid Arth ritis, Schizophrenia, Seizures, Sickle Cell Disease, Sexually Transmitted Disease, TIA - Surgical History Surgical History: No Surg Hx Denies: Appendectomy, CABG, Carotid Endarterectomy, Cholecystectomy, Coronary Stent, Pacemaker, Tonsillectomy - Family History Family History: States: Diabetes, Hypertension, Other Other Family History: alcoholism - Social History Current smoker - smoking cessation education provided: No Alcohol: > 2 Drinks/Day Drugs: Denies - Immunization History Hx Tetanus Toxoid Vaccination: Yes Hx Influenza Vaccination: Yes Hx Pneumococcal Vaccination: Yes - Home Medications Home Medications: Ambulatory Orders Medication Instructions Recorded RX: Famotidine [Pepcid] 20 mg PO BID tab 06/18/18 RX: Multimineral/Multivitamin 1 tab PO DAILY tab 06/18/18 [Therapeutic-M Tab] Ondansetron ODT [Zofran ODT] 1 odt PO Q6 PRN #20 odt 09/30/18 chlordiazePOXIDE [Chlordiazepoxide 25 mg PO Q6 PRN #10 cap 09/30/18 HCl] - Allergies Allergies/Adverse Reactions: Allergies Allergy/AdvReac Type Severity Reaction Status Date / Time No Known Allergies Allergy Verified 06/16/18 03:51 Review of Systems ROS Statement: Except As Marked, All Systems Reviewed And Found Negative Gastrointestinal: Positive for: Nausea, Vomiting Psych: Positive for: Anxiety (shaky). Negative for: Suicidal ideation (or ho micidal ideation), Other (hallucinations) Physical Exam - Reviewed Nursing Documentation Reviewed: Yes Vital Signs Reviewed: Yes - Physical Exam Appears: Positive for: In Acute Distress (psychiatric) Head Exam: Positive for: ATRAUMATIC, NORMAL INSPECTION, NORMOCEPHALIC Skin: Positive for: Normal Color, Warm, Dry Eye Exam: Positive for: Normal appearance, EOMI, PERRL ENT: Positive for: Other (dry mucous membranes) Neck: Positive for: Normal, Painless ROM, Supple Cardiovascular/Chest: Positive for: Tachycardia (regular rhythm). Negative for: Murmur Respiratory: Positive for: Normal Breath Sounds. Negative for: Respiratory Distress Gastrointestinal/Abdominal: Positive for: Normal Exam, Soft. Negative for: Tenderness, Guarding, Rebound Back: Positive for: Normal Inspection. Negative for: L CVA Tenderness, R CVA Tenderness, Vertebral Tenderness Extremity: Positive for: Normal ROM (upper and lower extremities). Negative for: Deformity, Swelling Neurologic/Psych: Positive for: Alert, Oriented (x3), Mood/Affect (anxious). Negative for: Other (slurred speech) - Laboratory Results Result Diagrams: 09/30/18 20:11 09/30/18 20:11 - ECG O2 Sat by Pulse Oximetry: 99 (RA) Pulse Ox Interpretation: Normal Medical Decision Making Medical Decision Making: Time: 19:11 Initial Impression: Alcohol dependance, withdrawal and anxiety. Initial Plan: --Acetaminophen --Alcohol serum --CMP --Magnesium --Phosphorus --Salicylate --TSH --Drug screen, urine --Crisis evaluation --Urine --Urine dipstick --NaCl 1,000 ml IV 150 mls/hr --Librium 50 mg PO --Zofran Inj 8 mg IV --Reevaluation Scribe Attestation: Documented by Smith Hennessy, acting as a scribe for Mariela Gómez MD Provider Scribe Attestation: All medical record entries made by the Scribe were at my direction and personally dictated by me. I have reviewed the chart and agree that the record accurately reflects my personal performance of the history, physical exam, medical decision making, and the department course for this patient. I have also personally directed, reviewed, and agree with the discharge instructions and disposition. Disposition - Clinical Impression Clinical Impression: Anxiety, Alcohol use disorder, Alcohol withdrawal Counseled Patient/Family Regarding: Studies Performed, Diagnosis, Need For Followup, Rx Given - Disposition Disposition: Routine/Home Disposition Time: 00:00 Condition: IMPROVED Additional Instructions: FOLLOW UP INSTRUCTED BY SOFTWARE DEVELOPMENT COORDINATOR. Prescriptions: chlordiazePOXIDE [Chlordiazepoxide HCl] 25 mg PO Q6 PRN #10 cap PRN Reason: alcohol withdrawal symptoms Ondansetron ODT [Zofran ODT] 1 odt PO Q6 PRN #20 odt PRN Reason: Nausea/Vomiting Instructions: Anxiety, Adult (DC), Alcohol Withdrawal, Alcohol Abuse and Alcoholism (DC)
[2018-09-30 20:33] LABS: ACETAMINOPHEN < 10.0 ug/ml (10.0-30.0); ALB/GLOB RATIO 1.4 (1.0-2.1); ALBUMIN 4.8 g/dL (3.5-5.0); ALT/SGPT 56 U/L (9-52); AST/SGOT 69 U/L (14-36); BLOOD UREA NITROGEN 10 mg/dl (7-17); CALCIUM 9.6 mg/dL (8.4-10.2); GFR NON-AFRICAN AMERICAN > 60; SALICYLATE < 1.0 mg/dl
[2018-09-30 21:36] LABS: BARBITURATES, UR NEGATIVE (NEGATIVE); BENZODIAZEPINES, UR NEGATIVE (NEGATIVE); OPIATES, UR NEGATIVE (NEGATIVE); PHENCYCLIDINE, UR NEGATIVE (NEGATIVE)
[2018-10-01 08:04] VITALS: BP 130/78; PULSE 85; RESP 16; TEMP 97.9
[2018-10-03 16:45] VITALS: O2SAT 99
== END 2018-10-01 00:45 | disposition home or self-care (01) ==
LOC: H.ER 18:26
DX: F41.9 Anxiety disorder, unspecified (principal); F10.10 Alcohol abuse, uncomplicated; F10.239 Alcohol dependence with withdrawal, unspecified; Z79.899 Other long term (current) drug therapy
CPT/HCPCS: 80053; 81025; 83735; 84100; 84443; 85025; 99284; G0480; J2405; J3411; J7030

== ENCOUNTER 2018-11-26 08:10 | Inpatient (IN) | payer MEDICAID, OTHER ==
[2018-11-26 08:10] VITALS: BMI 29.0
[2018-11-26] MEDS ORDERED: Sodium Chloride 0.9% 1,000 ML IV STA (08:56)
--- NOTE | 2018-11-26 09:04 | ED PDOC ---
HPI: Psych/Substance Abuse Time Seen by Provider: 11/26/18 08:20 Chief Complaint (Nursing): Psychiatric Evaluation Chief Complaint (Provider): Psychiatric Evaluation History Per: Patient, Family History/Exam Limitations: no limitations Onset/Duration Of Symptoms: Days Current Symptoms Are (Timing): Still Present Associated Symptoms: denies: Suicidal Thoughts, Suicidal Plan Additional Complaint(s): 33 year old female with a past medical history of depression and anxiety who is presenting to the ED for evaluation of worsening depression and anxiety ongoing for many years. Patient states that she drinks to not feel the anxiety and reports that her last drink was last night around 11 pm. She also reports that she has been having episodes of fainting with the last one at 7:30 am this morning. Patient states that she has mild nausea and generally feels weak associated with dizziness and lightheadedness. She denies any chest pain, shortness of breath, diarrhea, abdominal pain, headaches, numbness or tingling. She also denies any suicidal or homicidal ideation. Patient has also been to this ED and [facility] ED in the past for similar complaints. DIzziness and fainting going on for 2 years. Of note, mother states privately to provider that patient has states that she doesnt want to be alive anymore. Patient states that she currently takes Zoloft and denies any drug use. PMD: Obey Rich Past Medical History Reviewed: Historical Data, Nursing Documentation, Vital Signs Vital Signs: Last Vital Signs Temp 98 F 11/26/18 08:34 Pulse 92 H 11/26/18 08:34 Resp 18 11/26/18 08:34 BP 155/84 H 11/26/18 08:34 Pulse Ox 97 11/26/18 08:34 - Medical History PMH: Anemia, Anxiety, Depression, Sleep Apnea (prior to surgery) Denies: Alzheimer's Disease, Arthritis, Asthma, Atrial Fibrillation, Bipolar Disorder, Bronchitis, CAD, Cardia Arrhythmia, CHF, COPD, Crohn's Disease, De mentia, Diabetes, Diverticulitis, Emphysema, Fractures, Gastritis, Gall Bladder Disease, Hepatitis, HIV, HTN, Hypercholesterolemia, Hyperthyroidism, Hypothyroidism, Kidney Stones, Migraine, Mitral Valve Prolapse, Multiple Sclerosis, Osteoporosis, Pancreatitis, Paranoia, Parkinson's Disease, Peripheral Edema, Pneumonia, Post Traumatic Stress Disorder, Pulmonary Embolism, Chronic Kidney Disease, Rheumatoid Arthritis, Schizophrenia, Seizures, Sickle Cell Disease, Sexually Transmitted Disease, TIA - Surgical History Surgical History: Denies: Appendectomy, CABG, Carotid Endarterectomy, Cholecystectomy, Coronary Stent, Pacemaker, Tonsillectomy Other surgeries: Gastric Bypass surgery - Family History Family History: States: Diabetes, Hypertension - Social History Current smoker - smoking cessation education provided: Yes Alcohol: Other (drinks daily) Drugs: Denies - Immunization History Hx Tetanus Toxoid Vaccination: Yes Hx Influenza Vaccination: Yes Hx Pneumococcal Vaccination: No - Home Medications Home Medications: Ambulatory Orders Medication Instructions Recorded Sertraline [Zoloft] 100 mg PO DAILY #30 tab 11/04/18 traZODone [Desyrel] 50 mg PO HS PRN #30 tab 11/04/18 - Allergies Allergies/Adverse Reactions: Allergies Allergy/AdvReac Type Severity Reaction Status Date / Time No Known Allergies Allergy Verified 11/26/18 08:34 Review of Systems ROS Statement: Except As Marked, All Systems Reviewed And Found Negative Constitutional: Positive for: Weakness, Other (fainting ) Cardiovascular: Negative for: Chest Pain Respiratory: Negative for: Shortness of Breath Gastrointestinal: Positive for: Nausea. Negative for: Abdominal Pain, Diarrhea Neurological: Positive for: Dizziness. Negative for: Headache Psych: Positive for: Anxiety, Depression. Negative for: Suicidal ideation, Other (homicidal ideation ) Physical Exam - Reviewed Nursing Documentation Reviewed: Yes Vital Signs Reviewed: Yes - Physical Exam Appears: Positive for: Non-toxic, No Acute Distress Head Exam: Positive for: ATRAUMATIC, NORMAL INSPECTION, NORMOCEPHALIC Skin: Positive for: Normal Color, Warm, DRY Eye Exam: Positive for: EOMI, Normal appearance, PERRL ENT: Positive for: Normal ENT Inspection. Negative for: Nasal Congestion Neck: Positive for: Normal, Painless ROM, Supple Cardiovascular/Chest: Positive for: Regular Rate, Rhythm. Negative for: Murmur Respiratory: Positive for: Normal Breath Sounds. Negative for: Respiratory Distress Gastrointestinal/Abdominal: Positive for: Normal Exam, Soft. Negative for: Tenderness Back: Positive for: Normal Inspection. Negative for: L CVA Tenderness, R CVA Tenderness Extremity: Positive for: Normal ROM. Negative for: Tenderness, Deformity, Swelling Neurological/Psych: Positive for: Awake, Alert, Normal Tone, cage fighter II-XII (normal ). Negative for: Motor/Sensory Deficits - Laboratory Results Result Diagrams: 11/26/18 09:24 11/26/18 09:24 Lab Results: 118 etoh - ECG ECG: Positive for: Interpreted By Me, Viewed By Me ECG Rhythm: Positive for: Normal QRS, Normal ST Segment, Sinus Rhythm O2 Sat by Pulse Oximetry: 97 (RA) Pulse Ox Interpretation: Normal - Progress ED Course And Treament: 1051: Crisis saw pt. Medically stable for admit.l Crisis will admit. Medical Decision Making Medical Decision Making: Time: 8:56 Plan: --EKG --Alcohol Serum --CMP --Drug Screen --Lipase --Troponin --ED Urine Dipstick --ED Urine --CBC --IV Fluids --Zofran 4 mg IV Scribe Attestation: Documented by Analy Holcomb, acting as a scribe for Bong Roblero MD. Provider Scribe Attestation: All medical record entries made by the Scribe were at my direction and personally dictated by me. I have reviewed the chart and agree that the record accurately reflects my personal performance of the history, physical exam, medical decision making, and the department course for this patient. I have also personally directed, reviewed, and agree with the discharge instructions and disposition. Disposition - Clinical Impression Clinical Impression: Depression, Alcohol abuse - Patient ED Disposition Is Patient to be Admitted: No Counseled Patient/Family Regarding: Studies Performed, Diagnosis - Disposition Disposition Time: 09:20 Condition: FAIR
[2018-11-26 09:46] LABS: BASO # 0.1 K/uL (0.0-0.2); BASO % 2.3 % (0.0-2.0); EOS # 0.1 K/uL (0.0-0.7); EOS % 1.4 % (0.0-4.0); HEMOGLOBIN 11.3 g/dL (12.0-16.0); LYMPH # 0.9 K/uL (1.0-4.3); LYMPH % 19.9 % (20.0-40.0); MEAN CELL VOLUME 88.3 fl (81.0-99.0); MEAN CORPUSCULAR HEMOGLOBIN 28.8 pg (27.0-31.0); MEAN CORPUSCULAR HGB CONC 32.6 g/dL (33.0-37.0); MEAN PLATELET VOLUME 7.1 fl (7.2-11.7); MONO # 0.3 K/uL (0.0-0.8); MONO % 5.8 % (0.0-10.0); NEUT # 3.2 K/uL (1.8-7.0); NEUT % 70.6 % (50.0-75.0); NRBC % 0.1 % (0.0-0.0); RBC 3.92 Mil/uL (3.80-5.20); RED CELL DISTRIBUTION WIDTH 24.6 % (11.5-14.5); WHITE BLOOD COUNT 4.5 K/uL (4.8-10.8)
[2018-11-26 09:59] LABS: ALB/GLOB RATIO 1.4 (1.0-2.1); ALBUMIN 4.5 g/dL (3.5-5.0); ALT/SGPT 35 U/L (9-52); AST/SGOT 60 U/L (14-36); BLOOD UREA NITROGEN 8 mg/dl (7-17); CALCIUM 9.2 mg/dL (8.4-10.2); GFR NON-AFRICAN AMERICAN > 60; LIPASE 202 U/L (23-300)
[2018-11-26 10:02] LABS: SQUAMOUS EPITHIAL 1 /hpf (0-5); URINE AMORPHOUS SEDIMENT RARE /ul (<OCC); URINE BILIRUBIN NEGATIVE (NEGATIVE); URINE BLOOD NEGATIVE (NEGATIVE); URINE CLARITY SLIGHTY-CLOUDY (Clear); URINE COLOR YELLOW (YELLOW); URINE GLUCOSE (UA) NEG (NEGATIVE); URINE LEUKOCYTE ESTERASE NEG Leu/uL (Negative); URINE PROTEIN 30 mg/dL (NEGATIVE)
[2018-11-26 10:33] LABS: BARBITURATES, UR NEGATIVE (NEGATIVE); BENZODIAZEPINES, UR POSITIVE (NEGATIVE); OPIATES, UR NEGATIVE (NEGATIVE); PHENCYCLIDINE, UR NEGATIVE (NEGATIVE)
[2018-11-26 11:21] VITALS: O2SAT 99
[2018-11-26] MEDS ORDERED: DiphenhydrAMINE 50 mg/ml Inj IM PRN (12:09)
[2018-11-26] MEDS ORDERED: Alum-Mag Hydrox-Simethicone Susp (30 mL) PO PRN (12:09)
[2018-11-26] MEDS ORDERED: Magnesium Hydroxide Susp 30 ml UD PO PRN (12:09)
--- NOTE | 2018-11-26 14:21 | PCM.PSYCH ---
Initial Psychiatric Evaluation - Initial Psychiatric Evaluation Type of Admission: Voluntary Legal Status: Capacity Chief Complaint (in patient's own words): I am very depressed History of Present Illness and Precipitating Events: pt is 33 ys old female with previous diagnosis of depression and alcohol dependence, non compliant with treatment or follow up since her last hospitalization, brought to ER by mother as patient has been unable to care for herself or her children pt has been increasingly depressed in the context of breaking up with her and loosing her job, reportedly has been using about two bottles of wine daily, pt has been having mood swings with severe depression alternating with episodes of anger and irritability, physical and verbal aggression towards he family on evaluation pt is anxious tearful, reported poor sleep poor appetite, feeling hopeless and helpless, passive suicidal ideation feeling her life is worthless without active plan on the unit , denied perceptual disturbances, denied homicidal ideation collateral information / patients mother, Taty, As per Taty, her daughter has had an alcohol problem for many years. This past May, the patient was admitted due to an overdose and consuming large amounts of alcohol. Patient has been saying for a long time, I want to . Taty stated that she would take care of the patients kids when she is in treatment, and when she comes home, the patient would start grabbing her kids by their hair, arm, and coat when it is time to go home. Taty stated that the patient has also been aggressive towards her in the past or when she is under the influence. The patient drinks daily. The patient has lost her , her job, and her apartment this past year. Taty does not feel that her children are safe w/ her. Taty stated that she has received calls from the school since the patient has not been able to take her children to school due to not feeling well. The patients 12 year old daughter, has informed her that she should be the one to care for her mother, and she is worried about her mother since she is always sick Current Medications: Active Medications Generic Name Dose Route Start Last Admin Trade Name Freq PRN Reason Stop Dose Admin Al Hydrox/Mg Hydrox/Simethicone 30 ml 11/26/18 12:09 Maalox Plus 30 Ml PO Q4 PRN Dyspepsia Chlordiazepoxide 25 mg 11/26/18 13:00 11/26/18 12:09 Librium PO 25 mg TID ALLAN Administration Diphenhydramine HCl 50 mg 11/26/18 12:09 Benadryl IM Q6 PRN Extrapyramidal S/S Unable PO Diphenhydramine HCl 50 mg 11/26/18 12:09 Benadryl PO Q6 PRN Extrapyramidal Symptoms Folic Acid 1 mg 11/27/18 09:00 Folic Acid PO DAILY ALLAN Gabapentin 200 mg 11/26/18 13:00 11/26/18 12:09 Neurontin PO 200 mg TID ALLAN Administration Haloperidol 5 mg 11/26/18 12:09 Haldol PO Q4 PRN Agitation Haloperidol Lactate 5 mg 11/26/18 12:09 Haldol IM Q4 PRN Agitation, Unable to Take PO Ibuprofen 600 mg 11/26/18 12:12 Motrin Tab PO Q8 PRN Pain, moderate (4-7) Lorazepam 2 mg 11/26/18 12:09 Ativan IM Q4 PRN Anxiety/Agitation,Unable PO Lorazepam 2 mg 11/26/18 12:09 Ativan PO Q4 PRN Anxiety/Agitation Magnesium Hydroxide 30 ml 11/26/18 12:09 Milk Of Magnesia PO HS PRN Constipation Ondansetron HCl 4 mg 11/26/18 12:13 Zofran Tab PO Q6 PRN Nausea/Vomiting Thiamine HCl 100 mg 11/27/18 09:00 Vitamin B1 Tab PO DAILY [facility] Trazodone HCl 100 mg 11/26/18 22:00 Desyrel PO HS [facility] Past Psychiatric History - Past Psychiatric History Explanation of prior treatment: two inpatient hospitalizations , one after suicide attempt by overdose hx of non compliance with treatment History of ETOH/Drug Use: hx of alcohol use since age 13 Pertinent Medical Hx (Current Medical&Sleep Prob, Allergies): Allergies Allergy/AdvReac Type Severity Reaction Status Date / Time No Known Allergies Allergy Verified 11/26/18 08:34 Sertraline [Zoloft] 100 mg PO DAILY #30 tab 11/04/18 traZODone [Desyrel] 50 mg PO HS PRN #30 tab 11/04/18 Mental Status Examination - Personal Presentation Personal Presentation: Looks stated age - Affect Affect: Constricted, Depressed - Motor Activity Motor Activity: Psychomotor Retardation - Reliability in Providing Information Reliability in Providing Information: Fair - Speech Speech: Relevant - Mood Mood: Depressed, Anxious - Formal Thought Process Formal Thought Process: Circumstantial - Obsessions/Compulsions Obsessions: No Compulsions: No - Cognitive Functions Orientation: Person, Place Sensorium: Alert Attention/Concentration: Easily distracted Estimate of Intelligence: Average Judgement: Imparied, as evidence by: Poor judgement - Risk Risk: Suicidal, Seizure, Withdrawal, Diminished functioning - Strength & Assets Inventory Strength & Assets Inventory: Family support - Limitations Additional comments: poor compliance DSM 5 DX - DSM 5 DSM 5 Diagnosis: major depression recurrent severe alcohol dependence - Recommended/Plan of Treatment Treatment Recommendations and Plan of Treatment: start librium protocol and monitor patient for symptoms and signs of alcohol withdrawal neurontin 200mg tid internal medicine consult motivational group and supportive therapy referral to rehab
--- NOTE | 2018-11-26 17:35 | CARD ---
APPROVED REPORT Date of service: 11/26/2018 EKG Measurement Heart [id number] <Conclusion> Normal sinus rhythm Prolonged QT Abnormal ECG
--- NOTE | 2018-11-27 09:55 | CP.PCM.HP ---
History of Present Illness - History of Present Illness History of Present Illness: pt admitted for depression/alcohol abuse. no tremors or s/s withdrawal. no si/hi verbalized but per ERMD pt had verbalized same to mother. no f/c, n/v/d. bw noted. Present on Admission - Present on Admission Any Indicators Present on Admission: No Review of Systems - Psychiatric Psychiatric: As Per HPI, Depression Past Patient History - Infectious Disease Hx of Infectious Diseases: None - Past Social History Alcohol: Other (drinks daily) Drugs: Denies - CARDIAC Hx Cardiac Disorders: No Hx Hypertension: No - PULMONARY Hx Tuberculosis: No - NEUROLOGICAL HX Cerebrovascular Accident: No Hx Seizures: No - HEENT Hx HEENT Problems: No Hx Cataracts: No Hx Deafness: No Hx Difficulty Chewing: No Hx Epistaxis: No Hx Glaucoma: No Hx Macular Degeneration: No - RENAL Hx Chronic Kidney Disease: No Hx Kidney Stones: No - ENDOCRINE/METABOLIC Hx Hyperthyroidism: No Hx Hypothyroidism: No - HEMATOLOGICAL/ONCOLOGICAL Hx Cancer: No Hx Human Immunodeficiency Virus (HIV): No - INTEGUMENTARY Hx Dermatological Problems: No Hx Basil Cell: No Hx Vee: No Hx Cellulitis: No Hx Eczema: No Hx Melanoma: No Hx Psoriasis: No Hx Squamous Cell: No - MUSCULOSKELETAL/RHEUMATOLOGICAL Hx Arthritis: No Hx Fractures: No Hx Osteoporosis: No Hx Rheumatoid Arthritis: No - GASTROINTESTINAL Hx Crohn's Disease: No Hx Diverticulitis: No Hx Gall Bladder Disease: No Hx Gastritis: No Hx Pancreatitis: No - GENITOURINARY/GYNECOLOGICAL Hx Sexually Transmitted Disorders: No - PSYCHIATRIC Hx Substance Use: No - SURGICAL HISTORY Hx Appendectomy: No Hx Carotid Endarterectomy: No Hx Cholecystectomy: No Hx Coronary Artery Bypass Graft: No Hx Coronary Stent: No Hx Tonsillectomy: No Other/Comment: Gastric bipass - ANESTHESIA Hx Anesthesia: Yes Hx Anesthesia Reactions: No Meds Allergies/Adverse Reactions: Allergies Allergy/AdvReac Type Severity Reaction Status Date / Time No Known Allergies Allergy Verified 11/26/18 08:34 Physical Exam - Constitutional Appears: Well, Non-toxic, No Acute Distress - Head Exam Head Exam: ATRAUMATIC, NORMAL INSPECTION, NORMOCEPHALIC - Eye Exam Eye Exam: EOMI, Normal appearance, PERRL Pupil Exam: NORMAL ACCOMODATION, PERRL - ENT Exam ENT Exam: Mucous Membranes Moist, Normal Exam - Neck Exam Neck exam: Positive for: Normal Inspection - Respiratory Exam Respiratory Exam: Clear to Auscultation Bilateral, NORMAL BREATHING PATTERN - Cardiovascular Exam Cardiovascular Exam: REGULAR RHYTHM, RRR, +S1, +S2 - GI/Abdominal Exam GI & Abdominal Exam: Normal Bowel Sounds, Soft. absent: Tenderness - Extremities Exam Extremities exam: Positive for: full ROM, normal capillary refill, normal inspection, pedal pulses present - Back Exam Back exam: FULL ROM, NORMAL INSPECTION - Neurological Exam Neurological exam: Alert, CN II-XII Intact, Normal Gait, Oriented x3, Reflexes Normal - Psychiatric Exam Psychiatric exam: Normal Affect, Normal Mood - Skin Skin Exam: Dry, Intact, Normal Color, Warm Results - Vital Signs Recent Vital Signs: Last Vital Signs Temp 97.5 F L 11/26/18 16:38 Pulse 66 11/26/18 21:00 Resp 18 11/26/18 21:00 BP 147/90 11/26/18 21:00 Pulse Ox 99 11/26/18 11:17 - Labs Result Diagrams: 11/26/18 09:24 11/26/18 09:24 Labs: Laboratory Results - last 24 hr 11/26/18 11/26/18 11/26/18 09:24 09:24 09:45 WBC 4.5 L RBC 3.92 Hgb 11.3 L Hct 34.7 MCV 88.3 D MCH 28.8 MCHC 32.6 L RDW 24.6 H Plt Count 282 MPV 7.1 L Neut % (Auto) 70.6 Lymph % (Auto) 19.9 L [place] % (Auto) 5.8 Eos % (Auto) 1.4 Baso % (Auto) 2.3 H Neut # (Auto) 3.2 Lymph # (Auto) 0.9 L [place] # (Auto) 0.3 Eos # (Auto) 0.1 Baso # (Auto) 0.1 Sodium 141 Potassium 4.3 Chloride 101 Carbon Dioxide 20 L Anion Gap 24 H BUN 8 Creatinine 0.5 L Est GFR ( Amer) > 60 Est GFR (Non-Af Amer) > 60 Random Glucose 86 Calcium 9.2 Total Bilirubin 0.7 AST 60 H ALT 35 Alkaline Phosphatase 76 Troponin I < 0.0120 Total Protein 7.6 Albumin 4.5 Globulin 3.1 Albumin/Globulin Ratio 1.4 Lipase 202 Urine Color Urine Clarity Urine pH Ur Specific [place] Urine Protein Urine Glucose (UA) Urine Ketones Urine Blood Urine Nitrate Urine Bilirubin Urine Urobilinogen Ur Leukocyte Esterase Urine RBC (Auto) Urine Microscopic WBC Ur Squamous Epith Cells Amorphous Sediment Urine Opiates Screen Negative Urine Methadone Screen Negative Ur Barbiturates Screen Negative Ur Phencyclidine Scrn Negative Ur Amphetamines Screen Negative U Benzodiazepines Scrn Positive U Oth Cocaine Metabols Negative U Cannabinoids Screen Negative Alcohol, Quantitative 118 H 11/26/18 09:45 WBC RBC Hgb Hct MCV MCH MCHC RDW Plt Count MPV Neut % (Auto) Lymph % (Auto) [place] % (Auto) Eos % (Auto) Baso % (Auto) Neut # (Auto) Lymph # (Auto) [place] # (Auto) Eos # (Auto) Baso # (Auto) Sodium Potassium Chloride Carbon Dioxide Anion Gap BUN Creatinine Est GFR ( Amer) Est GFR (Non-Af Amer) Random Glucose Calcium Total Bilirubin AST ALT Alkaline Phosphatase Troponin I Total Protein Albumin Globulin Albumin/Globulin Ratio Lipase Urine Color Yellow Urine Clarity Slighty-cloudy Urine pH 6.0 Ur Specific [place] 1.020 Urine Protein 30 Urine Glucose (UA) Neg Urine Ketones Trace Urine Blood Negative Urine Nitrate Negative Urine Bilirubin Negative Urine Urobilinogen 2.0 H Ur Leukocyte Esterase Neg Urine RBC (Auto) 2 Urine Microscopic WBC < 1 Ur Squamous Epith Cells 1 Amorphous Sediment Rare H Urine Opiates Screen Urine Methadone Screen Ur Barbiturates Screen Ur Phencyclidine Scrn Ur Amphetamines Screen U Benzodiazepines Scrn U Oth Cocaine Metabols U Cannabinoids Screen Alcohol, Quantitative Assessment & Plan (1) Alcohol abuse Assessment and Plan: librium, psych, monitor for s/s withdrawal no s/s at present Status: Acute (2) Depression Assessment and Plan: psych meds, interventions, therapies Status: Acute (3) DVT prophylaxis Assessment and Plan: ambulation Status: Acute Decision To Admit - Pt Status Changed To: Hospital Disposition Of: Inpatient - Admit Certification Admit to Inpatient:: After my assessment, the patient will require hospitalization for at least two midnights. This is because of the severity of symptoms shown, intensity of services needed, and/or the medical risk in this patient being treated as an outpatient. - . Bed Request Type: Adult Psychiatry Admitting Physician: Dennis Rich
--- NOTE | 2018-11-27 14:07 | PCM.PYCHPN ---
Psychiatric Progress Note - Psychiatric Progress Note Patient seen today, length of contact: pt evaluated discussed with team chart reviewed Patient Chief Complaint: I will do outpatient rehab Problems Identified/Issues Discussed: pt evaluated, guarded , evasive , minimizing her use of alcohol and its effect on her current mental status , motivational therapy provided discussed with patient self reflecting on possible effect of alcohol on her relation with child susan hernandez;oosing her job and her current financial status discussed starting wellbutrin to help with depression and help with alcohol cravings, pt agreed to start outpatient BARBARA denied any current suicidal or homicidal ideation denied perceptual disturbances Medical Problems: two inpatient hospitalizations , one after suicide attempt by overdose hx of non compliance with treatment DSM 5 Symptoms Update: major depression alcohol dependence Medication Change: Yes (start wellbutrin) Medical Record Reviewed: Yes Mental Status Examination - Cognitive Function Orientation: Person, Place, Situation Attention: WNL Concentration: WNL Association: WNL Fund of Knowledge: [facility] Decription of patient's judgement and insights: poor insight fair judgment - Mood Mood: Depressed, Anxious - Affect Affect: Constricted, Depressed - Formal Thought Process Formal Thought Process: Circumstantial Psychotic Thoughts and Behaviors: pt denied any currentt perceptual disturbances, non elicited - Suicidal Ideation Suicidal Ideation: No - Homicidal Ideation Homicidal Ideation: No Goal/Treatment Plan - Goal/Treatment Plan Need for Continued Stay: Severe depression anxiety, Discharge may exacerbated symptoms Progress Toward Problem(s) and Goals/Treatment Plan: down titration of librium protocol and monitor patient for symptoms and signs of alcohol withdrawal neurontin 200mg tid wellbutrin 75mg daily/ increase gradually motivational group and supportive therapy referral to rehab
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
--- NOTE | 2018-11-28 15:55 | PCM.PYCHPN ---
Psychiatric Progress Note - Psychiatric Progress Note Patient seen today, length of contact: pt evaluated discussed with team chart reviewed Patient Chief Complaint: I NEED TO DO ANYTHING TO BE WITH MY CHILDREN Problems Identified/Issues Discussed: pt evaluated with treatment team, continues to be depressed and anxious related that to her fear of loosing her children , motivational therapy provided, discussing the effect of alcohol on her current social and mental status, pt agreed to start inpatient rehab, discussed possible starting MAT as vivitrol shot, no reported side effects of wellbutrin ,encouraged pt to attend rroups pt denied any curent suicidal or homicidal ideation denied perceptual disturbances Medical Problems: two inpatient hospitalizations , one after suicide attempt by overdose hx of non compliance with treatment DSM 5 Symptoms Update: major depression alcohol abuse Medication Change: Yes (increase wellbutrin) Medical Record Reviewed: Yes Mental Status Examination - Cognitive Function Orientation: Person, Place, Situation Attention: WNL Concentration: WNL Association: WNL Fund of Knowledge: [facility] Decription of patient's judgement and insights: poor insight fair judgment - Mood Mood: Depressed, Anxious - Affect Affect: Constricted, Depressed - Formal Thought Process Formal Thought Process: Circumstantial Psychotic Thoughts and Behaviors: pt denied any currentt perceptual disturbances, non elicited - Suicidal Ideation Suicidal Ideation: No - Homicidal Ideation Homicidal Ideation: No Goal/Treatment Plan - Goal/Treatment Plan Need for Continued Stay: Severe depression anxiety, Discharge may exacerbated symptoms Progress Toward Problem(s) and Goals/Treatment Plan: down titration of librium protocol and monitor patient for symptoms and signs of alcohol withdrawal neurontin 200mg tid increase wellbutrin 150mg daily/ motivational group and supportive therapy referral to rehab
[2018-11-29] MEDS: buPROPion SR 150 MG TABLET PO SCH (09:11)
--- NOTE | 2018-11-29 18:50 | PCM.PYCHPN ---
Psychiatric Progress Note - Psychiatric Progress Note Patient seen today, length of contact: pt evaluated discussed with team chart reviewed Patient Chief Complaint: pt reports was feeling anxious depressed had been drinking now reports is beginning to feel a little better, [place] s/s etoh w/d, staff report pt has been treatment adherent Problems Identified/Issues Discussed: alteration in coping alteration mood Medical Problems: per chart Diagnostic Results: per psychiatry per medicine per nursing per social work per recreational therapy Medication Change: Yes (decrease librium to 5mg po once tomorrow then d/c) Medical Record Reviewed: Yes Consults ordered or reviewed: pt seen by hospitalist Mental Status Examination - Cognitive Function Orientation: Person, Place, Situation Attention: WNL Concentration: WNL Association: WN Fund of Knowledge: [facility] Decription of patient's judgement and insights: impaired - Mood Mood: Depressed, Anxious Additional comments: somewhat less - Affect Affect: Constricted, Depressed - Speech Speech: Soft - Formal Thought Process Formal Thought Process: Circumstantial - Suicidal Ideation Suicidal Ideation: No - Homicidal Ideation Homicidal Ideation: No Goal/Treatment Plan - Goal/Treatment Plan Need for Continued Stay: Severe depression anxiety, Discharge may exacerbated symptoms Progress Toward Problem(s) and Goals/Treatment Plan: inpt milieu decrease librium to 5mg po once tomorrow and then d/c pt has been free of reported and notable s/s etoh w/d adjust other meds per status disscharge planning in progress Estimated Date of D/C: 11/27/18 - Smoking Cessation Smoking Cessation Initiated: No Reason for not providing: defers
[2018-11-30] MEDS: buPROPion SR 150 MG TABLET PO SCH (09:31)
--- NOTE | 2018-11-30 15:15 | PCM.PYCHPN ---
Psychiatric Progress Note - Psychiatric Progress Note Patient seen today, length of contact: pt evaluated discussed with team chart reviewed Patient Chief Complaint: reports that slept but awakened 3 am last night, denies s/s withdrawal, pt seen about in milieu, interacting with peers, staff report pt rx adherent. Problems Identified/Issues Discussed: alteration in coping alteration mood Medical Problems: per chart Diagnostic Results: per psychiatry per medicine per nursing per social work per recreational therapy DSM 5 Symptoms Update: somewhat improved sleep but admits awakening 3 am denies s/s etoh with drawal Medication Change: No (d/c librium) Medical Record Reviewed: Yes Consults ordered or reviewed: pt seen by hospitalist Mental Status Examination - Cognitive Function Orientation: Person, Place, Situation Attention: WNL Concentration: WNL Association: WNL Fund of Knowledge: WN Decription of patient's judgement and insights: impaired - Mood Mood: Depressed, Anxious - Affect Affect: Constricted, Depressed - Speech Speech: Soft - Formal Thought Process Formal Thought Process: Circumstantial - Suicidal Ideation Suicidal Ideation: No - Homicidal Ideation Homicidal Ideation: No Goal/Treatment Plan - Goal/Treatment Plan Need for Continued Stay: Severe depression anxiety, Discharge may exacerbated symptoms Progress Toward Problem(s) and Goals/Treatment Plan: inpt milieu discontinue librium pt hs been weaned no reported s/s etoh w/d and notable s/s etoh w/d increase trazodone to 150mg hs prn insomnia adjust other meds per status disscharge planning in progress Estimated Date of D/C: 11/27/18 - Smoking Cessation Smoking Cessation Initiated: No Reason for not providing: pt defers
[2018-12-01] MEDS: buPROPion SR 150 MG TABLET PO SCH (09:31)
--- NOTE | 2018-12-01 14:44 | PCM.PYCHPN ---
Psychiatric Progress Note - Psychiatric Progress Note Patient seen today, length of contact: pt evaluated discussed with team chart reviewed Patient Chief Complaint: I still have hard time falling asleep Problems Identified/Issues Discussed: pt evaluated , appears less depressed, observed more engaged in treatment , attending groups and interacting with other peers, stated feeling down when she thinks about loosing her children, agrees to stert rehab on discharge, reported early insomnia, discussed increasing trazodone, denied side effects no reported suicidal or homicidal ideation denied perceptual disturbances Medical Problems: two inpatient hospitalizations , one after suicide attempt by overdose hx of non compliance with treatment DSM 5 Symptoms Update: major depression alcohol dependence Medication Change: Yes (increase trazodone ) Medical Record Reviewed: Yes Mental Status Examination - Cognitive Function Orientation: Person, Place, Situation Attention: WNL Concentration: WNL Association: WNL Fund of Knowledge: WNL - Mood Mood: Depressed, Anxious - Affect Affect: Constricted, Depressed - Speech Speech: Soft - Formal Thought Process Formal Thought Process: Circumstantial - Suicidal Ideation Suicidal Ideation: No - Homicidal Ideation Homicidal Ideation: No Goal/Treatment Plan - Goal/Treatment Plan Need for Continued Stay: Severe depression anxiety, Discharge may exacerbated symptoms Progress Toward Problem(s) and Goals/Treatment Plan: neurontin 200mg tid wellbutrin 150mg daily/ wellbutrin 200mg qhs motivational group and supportive therapy referral to rehab Estimated Date of D/C: 11/27/18
[2018-12-01] MEDS: Petrolatum UD PAK TOP SCH ×2 (18:03→22:00)
[2018-12-01 18:08] VITALS: RESP 18
[2018-12-02] MEDS: Petrolatum UD PAK TOP SCH ×4 (04:00→21:28)
[2018-12-02] MEDS: buPROPion SR 150 MG TABLET PO SCH (09:38)
--- NOTE | 2018-12-02 14:01 | PCM.PYCHPN ---
Psychiatric Progress Note - Psychiatric Progress Note Patient seen today, length of contact: pt evaluated discussed with team chart reviewed Patient Chief Complaint: I slept better yesterday Problems Identified/Issues Discussed: pt evaluated , reported feeling less anxious, brighter affect, pt motivated to start rehab , indicated improved sleep with increasing trazodone , no reported side effects of medications denied suicidal or homicidal ideation denied perceptual disturbances Medical Problems: two inpatient hospitalizations , one after suicide attempt by overdose hx of non compliance with treatment DSM 5 Symptoms Update: major depression alcohol dependence Medication Change: No Medical Record Reviewed: Yes Mental Status Examination - Cognitive Function Orientation: Person, Place, Situation Attention: WNL Concentration: WNL Association: WNL Fund of Knowledge: WNL - Mood Mood: Anxious - Affect Affect: Constricted, Depressed - Speech Speech: Appropriate - Formal Thought Process Formal Thought Process: Circumstantial Psychotic Thoughts and Behaviors: pt denied perceptual disturbances, non elicited - Suicidal Ideation Suicidal Ideation: No - Homicidal Ideation Homicidal Ideation: No Goal/Treatment Plan - Goal/Treatment Plan Need for Continued Stay: Severe depression anxiety, Discharge may exacerbated symptoms Progress Toward Problem(s) and Goals/Treatment Plan: neurontin 200mg tid wellbutrin 150mg daily/ trazodone 200mg qhs motivational group and supportive therapy referral to rehab Estimated Date of D/C: 11/27/18
[2018-12-03] MEDS: Petrolatum UD PAK TOP SCH (08:44)
[2018-12-03] MEDS: buPROPion SR 150 MG TABLET PO SCH (08:45)
[2018-12-03 09:38] VITALS: BP 129/84; PULSE 66; TEMP 97.6
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
== END 2018-12-03 13:15 | disposition home or self-care (01) | DRG 751 ==
LOC: H.ER 08:10 → H.ERHOLD 10:03 → H.PSYCH 11:35
PROVIDERS: ADMIT Psychiatry & Neurology Psychiatry; ATTEND Psychiatry & Neurology Psychiatry
PROC: GZHZZZZ Group Psychotherapy (ICD-10-PCS; principal; 2018-11-26)
PROC: GZ58ZZZ Individual Psychotherapy, Cognitive-Behavioral (ICD-10-PCS; 2018-11-26)
PROC: HZ52ZZZ Individual Psychotherapy for Substance Abuse Treatment, Cognitive-Behavioral (ICD-10-PCS; 2018-11-26)
DX: F33.2 Major depressive disorder, recurrent severe without psychotic features (principal); F10.229 Alcohol dependence with intoxication, unspecified; F41.9 Anxiety disorder, unspecified; Y90.5 Blood alcohol level of 100-119 mg/100 ml; Z91.19 Patient's noncompliance with other medical treatment and regimen; Z91.5 Personal history of self-harm; F17.200 Nicotine dependence, unspecified, uncomplicated; G47.30 Sleep apnea, unspecified; Z98.84 Bariatric surgery status